=== PATIENT | female | born 1975 | race Caucasian/White ===

== ENCOUNTER 2016-10-01 01:15 | Observation (INO) | payer OTHER ==
[2016-10-01] MEDS ORDERED: NITROGLYCERIN OINT 1 INCH/GM PACKET TOPICAL STA (01:34)
[2016-10-01] MEDS ORDERED: NITROGLYCERIN SL TABS 0.4 MG TAB SUBLINGUAL STA (01:34)
[2016-10-01] MEDS ORDERED: LORazepam 2 MG/ML SYRINGE IV STA (01:35)
--- NOTE | 2016-10-01 01:38 | ED ---
General Adult HPI - General Chief complaint: Chest Pain Stated complaint: Chest Pain/Headache Time Seen by Provider: 10/01/16 01:20 Source: patient, RN notes reviewed Mode of arrival: ambulatory Limitations: no limitations - History of Present Illness Initial comments: This is a 41-year-old female who presents emergency Department with a past medical history significant for esophageal spasms. Patient states today at midnight he started having chest pain she took 3 nitroglycerin but has had no relief from the pain. Patient states she takes nitroglycerin for esophageal spasms. Patient states usually this helps her esophagus spasming but it did not help tonight. Patient states the radiation of the pain goes down her left arm and up into her head. Patient denies any shortness of breath. Patient denies any diaphoresis. Patient denies any nausea. Patient denies abdominal pain patient denies vomiting or diarrhea. Patient denies any recent fever chills or cough. Patient denies any back pain. - Related Data Home Medications Medication Instructions Recorded Confirmed Albuterol Inhaler [Ventolin Hfa 1 - 2 puff INHALATION RT-Q6H PRN 05/11/16 Inhaler] Naproxen Sodium [Aleve] 220 mg PO DAILY PRN 05/11/16 10/01/16 Nitroglycerin Sl Tabs [Nitrostat] 0.4 mg SUBLINGUAL Q5M PRN 05/11/16 10/01/16 Omeprazole [PriLOSEC] 40 mg PO BID 05/11/16 10/01/16 ALPRAZolam [Xanax] 0.25 mg PO Q8HR PRN 10/01/16 10/01/16 Allergies Allergy/AdvReac Type Severity Reaction Status Date / Time aspirin Allergy Anaphylaxis Verified 10/01/16 01:22 ibuprofen Allergy Anaphylaxis Verified 10/01/16 01:22 Latex, Natural Rubber Allergy Rash/Hives Verified 10/01/16 01:22 Penicillins Allergy Anaphylaxis Verified 10/01/16 01:22 Review of Systems ROS Statement: Those systems with pertinent positive or pertinent negative responses have been documented in the HPI. ROS Other: All systems not noted in ROS Statement are negative. Past Medical History Past Medical History: Asthma Additional Past Medical History / Comment(s): esophageal spasms History of Any Multi-Drug Resistant Organisms: None Reported Past Surgical History: Section Additional Past Surgical History / Comment(s): D&C Past Psychological History: Anxiety Smoking Status: Current every day smoker Past Alcohol Use History: None Reported Past Drug Use History: None Reported General Exam - General Exam Comments Initial Comments: GENERAL: Patient is well-developed and well-nourished. Patient is nontoxic and well- hydrated and is in mild distress. ENT: Neck is soft and supple. No significant lymphadenopathy is noted. Oropharynx is clear. Moist mucous membranes. Neck has full range of motion without eliciting any pain. EYES: The sclera were anicteric and conjunctiva were pink and moist. Extraocular movements were intact and pupils were equal round and reactive to light. Eyelids were unremarkable. PULMONARY: Unlabored respirations. Good breath sounds bilaterally. No audible rales rhonchi or wheezing was noted. CARDIOVASCULAR: There is a regular rate and rhythm without any murmurs gallops or rubs. ABDOMEN: Soft and nontender with normal bowel sounds. No palpable organomegaly was noted. There is no palpable pulsatile mass. SKIN: Skin is clear with no lesions or rashes and otherwise unremarkable. NEUROLOGIC: Patient is alert and oriented x3. Cranial nerves II through XII are grossly intact. Motor and sensory are also intact. Normal speech, volume and content. Symmetrical smile. MUSCULOSKELETAL: Normal extremities with adequate strength and full range of motion. No lower extremity swelling or edema. No calf tenderness. LYMPHATICS: No significant lymphadenopathy is noted PSYCHIATRIC: Normal psychiatric evaluation. Normal interpersonal interactions appears functionally intact in deals appropriately with others. Patient is anxious Limitations: no limitations Course Vital Signs 10/01/16 10/01/16 01:19 01:36 Temperature 98.1 F Pulse Rate 85 74 Respiratory 20 16 Rate Blood Pressure 135/77 113/77 O2 Sat by Pulse 100 100 Oximetry Medical Decision Making - Medical Decision Making EKG shows normal sinus rhythm at 70 bpm MS interval is 142 QRS is 88 QT interval 380 QTC is 433 per patient's EKG shows no ST segment elevation or depression. Chest x-ray shows no acute abnormality. Patient stated that the nitroglycerin along with the Ativan seemed to take away her pain completely. - Lab Data Result diagrams: 10/01/16 01:30 10/01/16 01:30 Lab Results 10/01/16 10/01/16 10/01/16 Range/Units 01:30 01:30 01:30 WBC 17.3 H (3.8-10.6) k/uL RBC 4.71 (3.80-5.40) m/uL Hgb 14.0 (11.4-16.0) gm/dL Hct 42.7 (34.0-46.0) % MCV 90.6 (80.0-100.0) fL MCH 29.7 (25.0-35.0) pg MCHC 32.8 (31.0-37.0) g/dL RDW 11.9 (11.5-15.5) % Plt Count 272 (150-450) k/uL Neutrophils % 72 % Lymphocytes % 21 % Monocytes % 3 % Eosinophils % 3 % Basophils % 1 % Neutrophils # 12.5 H (1.3-7.7) k/uL Lymphocytes # 3.6 (1.0-4.8) k/uL Monocytes # 0.5 (0-1.0) k/uL Eosinophils # 0.5 (0-0.7) k/uL Basophils # 0.1 (0-0.2) k/uL PT (9.0-12.0) sec INR (<1.1) APTT (22.0-30.0) sec Sodium 140 (137-145) mmol/L Potassium 3.6 (3.5-5.1) mmol/L Chloride 104 (98-107) mmol/L Carbon Dioxide 26 (22-30) mmol/L Anion Gap 10 mmol/L BUN 8 (7-17) mg/dL Creatinine 0.68 (0.52-1.04) mg/dL Est GFR (MDRD) Af Amer >60 (>60 ml/min/1.73 sqM) Est GFR (MDRD) Non-Af >60 (>60 ml/min/1.73 sqM) Glucose 107 H (74-99) mg/dL Calcium 9.3 (8.4-10.2) mg/dL Magnesium 1.6 (1.6-2.3) mg/dL Total Bilirubin 0.4 (0.2-1.3) mg/dL AST 12 L (14-36) U/L ALT 20 (9-52) U/L Alkaline Phosphatase 66 (38-126) U/L Total Creatine Kinase 56 (30-135) U/L CK-MB (CK-2) 0.3 (0.0-2.4) ng/mL CK-MB (CK-2) Rel Index 0.5 Troponin I <0.012 (0.000-0.034) ng/mL Total Protein 7.3 (6.3-8.2) g/dL Albumin 4.0 (3.5-5.0) g/dL 10/01/16 Range/Units 01:30 WBC (3.8-10.6) k/uL RBC (3.80-5.40) m/uL Hgb (11.4-16.0) gm/dL Hct (34.0-46.0) % MCV (80.0-100.0) fL MCH (25.0-35.0) pg MCHC (31.0-37.0) g/dL RDW (11.5-15.5) % Plt Count (150-450) k/uL Neutrophils % % Lymphocytes % % Monocytes % % Eosinophils % % Basophils % % Neutrophils # (1.3-7.7) k/uL Lymphocytes # (1.0-4.8) k/uL Monocytes # (0-1.0) k/uL Eosinophils # (0-0.7) k/uL Basophils # (0-0.2) k/uL PT 10.1 (9.0-12.0) sec INR 1.0 (<1.1) APTT 26.6 (22.0-30.0) sec Sodium (137-145) mmol/L Potassium (3.5-5.1) mmol/L Chloride (98-107) mmol/L Carbon Dioxide (22-30) mmol/L Anion Gap mmol/L BUN (7-17) mg/dL Creatinine (0.52-1.04) mg/dL Est GFR (MDRD) Af Amer (>60 ml/min/1.73 sqM) Est GFR (MDRD) Non-Af (>60 ml/min/1.73 sqM) Glucose (74-99) mg/dL Calcium (8.4-10.2) mg/dL Magnesium (1.6-2.3) mg/dL Total Bilirubin (0.2-1.3) mg/dL AST (14-36) U/L ALT (9-52) U/L Alkaline Phosphatase (38-126) U/L Total Creatine Kinase (30-135) U/L CK-MB (CK-2) (0.0-2.4) ng/mL CK-MB (CK-2) Rel Index Troponin I (0.000-0.034) ng/mL Total Protein (6.3-8.2) g/dL Albumin (3.5-5.0) g/dL Disposition Clinical Impression: Chest pain Disposition: ADMITTED IP TO THIS [facility] Time of Disposition: 02:45
[2016-10-01 01:44] LABS: Basophils # (A) 0.1 k/uL (0-0.2); Basophils % (A) 1 %; CH 30.1; CHCM 33.3; Eosinophils # (A) 0.5 k/uL (0-0.7); Eosinophils % (A) 3 %; HCT 42.7 % (34.0-46.0); HDW 2.36; Luc # (Auto) 0.19; Luc % (Auto) 1; Lymphocytes # (A) 3.6 k/uL (1.0-4.8); Lymphocytes % (A) 21 %; MCH 29.7 pg (25.0-35.0); MCHC 32.8 g/dL (31.0-37.0); MCV 90.6 fL (80.0-100.0); Mean Platelet Volume 6.4; Monocytes # (A) 0.5 k/uL (0-1.0); Monocytes % (A) 3 %; Neutrophils # (A) 12.5 k/uL (1.3-7.7); Neutrophils % (A) 72 %; RBC 4.71 m/uL (3.80-5.40); RDW 11.9 % (11.5-15.5); WBC 17.3 k/uL (3.8-10.6); WBC (Perox) 17.54
[2016-10-01] MEDS ORDERED: ACETAMINOPHEN TAB 500 MG TAB PO STA (01:47)
[2016-10-01 01:51] LABS: Partial Thromboplastin Time 26.6 sec (22.0-30.0); Prothrombin Time 10.1 sec (9.0-12.0)
[2016-10-01 01:55] LABS: ALT 20 U/L (9-52); AST 12 U/L (14-36); Alkaline Phosphatase 66 U/L (38-126); Anion Gap 10 mmol/L; Blood Urea Nitrogen 8 mg/dL (7-17); Calcium 9.3 mg/dL (8.4-10.2); Carbon Dioxide 26 mmol/L (22-30); Chloride 104 mmol/L (98-107); Glucose 107 mg/dL (74-99); Magnesium 1.6 mg/dL (1.6-2.3); Non-African American GFR(MDRD) >60 (>60 ml/min/1.73 sqM); Potassium 3.6 mmol/L (3.5-5.1); Sodium 140 mmol/L (137-145); Total Bilirubin 0.4 mg/dL (0.2-1.3); Total Protein 7.3 g/dL (6.3-8.2)
[2016-10-01 02:04] LABS: Creatine Kinase 56 U/L (30-135)
[2016-10-01 02:17] LABS: Creatine Kinase MB 0.3 ng/mL (0.0-2.4); Troponin I <0.012 ng/mL (0.000-0.034)
--- NOTE | 2016-10-01 02:25 | XR ---
EXAM: XR Chest, 2 Views. CLINICAL HISTORY: Reason: Chest Pain TECHNIQUE: Frontal and lateral views of the chest. COMPARISON: No relevant prior studies available. FINDINGS: Lungs: Linear opacities in bilateral lower lungs favoring atelectasis. Please correlate clinically to exclude pneumonia. Pleural space: Unremarkable. No pneumothorax. Heart: Unremarkable. No cardiomegaly. Mediastinum: Prominent bilateral jessica. Bones/joints: Mild degenerative changes of the spine. IMPRESSION: 1. Linear opacities in bilateral lower lungs favoring atelectasis. Please correlate clinically to exclude pneumonia. 2. Prominent bilateral jessica.
[2016-10-01] MEDS ORDERED: NITROGLYCERIN SL TABS 0.4 MG TAB SUBLINGUAL PRN (02:45)
[2016-10-01] MEDS ORDERED: ACETAMINOPHEN TAB 325 MG TAB PO PRN (03:06)
[2016-10-01 08:22] VITALS: RESP 16
--- NOTE | 2016-10-01 09:09 | P.CRDCN ---
History of Present Illness Consult date: 10/01/16 Chief complaint: chest pain History of present illness: This is a pleasant 41-year-old female patient with a past medical history significant for esophageal spasm as well as history of asthma presented to the hospital complaining of chest discomfort. Normally she has intermittent episodes of esophageal spasm resolved with nitroglycerin. This time she had an episode of chest discomfort similar to what she had in the past but they did not resolve with nitro and the patient decided to come into the hospital. Currently she is pain-free. 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 She does not have any hypertension or dyslipidemia or diabetes. She does smoke and she is currently on Chantix. The EKG showed sinus rhythm without any significant ST or T-wave abnormalities. She underwent one set of cardiac enzymes came in to be unremarkable and the second set is in process. The patient would like to be discharged home. I discussed with the patient that we need to wait for the second set of cardiac enzymes. If it's normal she might be able to be discharged home and have an outpatient follow-up. Past Medical History Past Medical History: Asthma Additional Past Medical History / Comment(s): esophageal spasms History of Any Multi-Drug Resistant Organisms: None Reported Past Surgical History: Section Additional Past Surgical History / Comment(s): D&C Past Anesthesia/Blood Transfusion Reactions: No Reported Reaction Past Psychological History: Anxiety Smoking Status: Current every day smoker Past Alcohol Use History: None Reported Past Drug Use History: None Reported - Past Family History Mother History Unknown: Yes Father History Unknown: Yes Medications and Allergies Home Medications Medication Instructions Recorded Confirmed Type Albuterol Inhaler [Ventolin Hfa 1 - 2 puff INHALATION RT-Q6H PRN 05/11/16 History Inhaler] Naproxen Sodium [Aleve] 220 mg PO DAILY PRN 05/11/16 10/01/16 History Nitroglycerin Sl Tabs [Nitrostat] 0.4 mg SUBLINGUAL Q5M PRN 05/11/16 10/01/16 History Omeprazole [PriLOSEC] 40 mg PO BID 05/11/16 10/01/16 History ALPRAZolam [Xanax] 0.25 mg PO Q8HR PRN 10/01/16 10/01/16 History Allergies Allergy/AdvReac Type Severity Reaction Status Date / Time aspirin Allergy Anaphylaxis Verified 10/01/16 01:22 ibuprofen Allergy Anaphylaxis Verified 10/01/16 01:22 Latex, Natural Rubber Allergy Rash/Hives Verified 10/01/16 01:22 Penicillins Allergy Anaphylaxis Verified 10/01/16 01:22 Physical Exam Vitals: Vital Signs Temp Pulse Pulse Resp BP Pulse Ox 10/01/16 08:00 98.5 F 16 105/65 98 10/01/16 04:00 98 F 81 18 101/58 96 10/01/16 03:33 16 10/01/16 02:59 82 16 100 Intake and Output 09/30/16 10/01/16 10/01/16 22:59 06:59 14:59 Other: Voiding Method Toilet # Voids 1 Weight 69.3 kg - Constitutional General appearance: no acute distress - Respiratory Respiratory: bilateral: CTA - Cardiovascular Rhythm: regular Heart sounds: normal: S1, S2 Abnormal Heart Sounds: systolic murmur Results 10/01/16 01:30 10/01/16 01:30 Current Medications Generic Name Dose Route Start Last Admin Trade Name Freq PRN Reason Stop Dose Admin Acetaminophen 650 mg 10/01/16 03:06 Tylenol Tab PO Q4HR PRN Fever and/ or Pain Nitroglycerin 1 inch 10/01/16 06:00 Nitro-Bid Oint TOPICAL Q6HR VANDANA Nitroglycerin 0.4 mg 10/01/16 02:45 Nitrostat SUBLINGUAL Q5M PRN Chest Pain Intake and Output 09/30/16 10/01/16 10/01/16 22:59 06:59 14:59 Other: Voiding Method Toilet # Voids 1 Weight 69.3 kg Assessment and Plan Plan: assessment #1 atypical chest discomfort #2 history of esophageal spasm #3 history of smoking Plan #1 follow-up with the serial cardiac enzymes #2 follow-up with the patient
[2016-10-01 09:22] LABS: Creatine Kinase 41 U/L (30-135)
[2016-10-01 09:35] LABS: Creatine Kinase MB <0.2 ng/mL (0.0-2.4); Troponin I <0.012 ng/mL (0.000-0.034)
[2016-10-01] MEDS: NITROGLYCERIN OINT 1 INCH/GM PACKET TOPICAL SCH ×2 (09:58→14:07)
[2016-10-01 12:37] VITALS: BP 158/93; TEMP 98.2
[2016-10-01 13:21] VITALS: PULSE 81
--- NOTE | 2016-10-01 19:02 | HP ---
DATE OF SERVICE: 10/01/2016 History and physical and discharge summary. CHIEF COMPLAINT: Chest pain. HISTORY OF PRESENT ILLNESS: Ms. Cool is a 41-year-old female with past medical history of esophageal spasm, asthma, coming into the hospital with a chief complaint of chest pain. Patient does have history of esophageal spasm and follows with Dr. Mauro and has been taking nitroglycerin for it. She thinks this time the chest pain was a little bit different to the ones that she had in the past and they did not resolve with nitroglycerin and so she came into the hospital for further evaluation. The patient was given aspirin, nitroglycerin in the ED and her symptoms did resolve. Patient did have troponins x2 that have been negative and EKG within normal limits. She does have a significant smoking history of 1 pack per day. She does not know about her biological family history. FAMILY HISTORY: She is chest pain free now and was evaluated by Cardiology, who said she was stable for discharge. PAST MEDICAL HISTORY: Asthma and esophageal spasms. ALLERGIES: ASPIRIN, IBUPROFEN, LATEX, NATURAL RUBBER AND PENICILLIN. Patient's home medications: Nitroglycerin 0.4 mg sublingual tablet q.5 minutes p.r.n. for esophageal spasms, albuterol inhaler p.r.n. for shortness of breath, omeprazole 40 mg p.o. b.i.d., naproxen 220 mg p.o. daily, Xanax 0.25 mg p.o. q.8 hours p.r.n. for anxiety. FAMILY HISTORY: She does not know biological family history. SOCIAL HISTORY: She is a current every day smoker. Smokes 1 pack a day. Occasional alcohol. PAST SURGICAL HISTORY: . On examination, patient's vital signs temperature 98.2, heart rate 94. Rate 16, blood pressure 158/93, saturating at 98% on room air. GENERAL EXAMINATION: Patient appears to be no acute distress, sitting in room eating her lunch. HEAD: Atraumatic, normocephalic. EYES: Pupils equal, round and reactive to light. NECK: No JVD. No thyromegaly. HEART: S1, S2. ( ) RESPIRATORY: Bilateral breath sounds are positive. No wheeze or crackles. ABDOMEN: Soft, nontender. Bowel sounds are positive. EXTREMITIES: No edema. No cyanosis. 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 No focal deficits. PSYCHIATRIC: Appropriate mood and affect. Patient's labs: Sodium 140, potassium 3.6, chloride 104, bicarb 26, BUN 8, creatinine 0.68. Troponin less than 0.012 x2. White count of 17.3, hemoglobin 14, platelets of 272, PT of 10.1, INR 1, APTT of 26.6, albumin 4. EKG within normal limits. ASSESSMENT AND PLAN: 1. Atypical chest pain. 2. History of esophageal spasms. 3. Nicotine dependence. 4. Mild intermittent asthma. PLAN: The patient had 2 sets of troponins and EKGs within normal limits and was evaluated by cardiology and cleared for discharge. Patient is advised to follow up with Manager Valuation, Dr. Mauro, for her esophageal spasms and she is being discharged home in stable condition. No change in her medications made during this visit. She is advised to follow with her PCP Dr. Yuniel Johnston within one week's time and GI, Dr. Mauro, in one week's time. Patient is being discharged home in stable condition. DIMPLE
== END 2016-10-01 14:00 | disposition home or self-care (01) ==
LOC: EC 01:15 → 3OBS 02:46
PROVIDERS: ADMIT Internal Medicine; ATTEND Internal Medicine
DX: R07.89 Other chest pain (principal); K22.4 Dyskinesia of esophagus; F17.200 Nicotine dependence, unspecified, uncomplicated; J45.20 Mild intermittent asthma, uncomplicated; Z79.899 Other long term (current) drug therapy; Z88.6 Allergy status to analgesic agent; Z88.0 Allergy status to penicillin; F41.9 Anxiety disorder, unspecified
CPT/HCPCS: 99285 ×2; 96374 ×2; 36415; 93005; 80053; 82550; 82553; 83735; 84484; 85025; 85610; 85730; 71020; G0378; J2060

== ENCOUNTER 2016-12-01 06:15 | Emergency (ER) | payer OTHER ==
[2016-12-01] MEDS ORDERED: CLINDAMYCIN 600 MG in DEXTROSE 5% IN WATER 50 ML IVPB STA ×2 (07:40)
[2016-12-01] MEDS ORDERED: DEXAMETHASONE SOD PHOSPHATE 10 MG/ML 1 ML VIAL IV STA (07:40)
[2016-12-01] MEDS ORDERED: RX INFO: IV CONTRAST WAS GIVEN 1 EACH MISC MISCELLANE PRN (07:41)
--- NOTE | 2016-12-01 07:43 | ED ---
General Adult HPI - General Chief complaint: ENT Stated complaint: Throat pain Time Seen by Provider: 12/01/16 07:24 Source: patient, RN notes reviewed Mode of arrival: ambulatory Limitations: no limitations - History of Present Illness Initial comments: Patient is a pleasant 41-year-old female presenting to the emergency department complaining of sore throat. Onset was yesterday. Throat is more sore on the left. No difficulty in breathing. Patient is tolerating her secretions. Patient is tolerating oral intake. No fever. Discomfort does increase with swallowing. - Related Data Home Medications Medication Instructions Recorded Confirmed Albuterol Inhaler [Ventolin Hfa 1 - 2 puff INHALATION RT-Q6H PRN 05/11/16 Inhaler] Naproxen Sodium [Aleve] 220 mg PO DAILY PRN 05/11/16 12/01/16 Nitroglycerin Sl Tabs [Nitrostat] 0.4 mg SUBLINGUAL Q5M PRN 05/11/16 12/01/16 Omeprazole [PriLOSEC] 40 mg PO BID 05/11/16 12/01/16 ALPRAZolam [Xanax] 0.25 mg PO Q8HR PRN 10/01/16 12/01/16 Previous Rx's Medication Instructions Recorded Clindamycin [Cleocin] 2 tab PO QID #80 capsule 12/01/16 Allergies Allergy/AdvReac Type Severity Reaction Status Date / Time aspirin Allergy Anaphylaxis Verified 12/01/16 07:58 ibuprofen Allergy Anaphylaxis Verified 12/01/16 07:58 Latex, Natural Rubber Allergy Rash/Hives Verified 12/01/16 07:58 Penicillins Allergy Anaphylaxis Verified 12/01/16 07:58 Review of Systems ROS Statement: Those systems with pertinent positive or pertinent negative responses have been documented in the HPI. ROS Other: All systems not noted in ROS Statement are negative. Constitutional: Denies: fever Eyes: Denies: eye pain ENT: Reports: throat pain Respiratory: Denies: cough Cardiovascular: Denies: chest pain Endocrine: Denies: fatigue Gastrointestinal: Denies: abdominal pain Genitourinary: Denies: dysuria Musculoskeletal: Denies: back pain Skin: Denies: rash Neurological: Denies: weakness Past Medical History Past Medical History: Asthma Additional Past Medical History / Comment(s): esophageal spasms History of Any Multi-Drug Resistant Organisms: None Reported Past Surgical History: Section Additional Past Surgical History / Comment(s): D&C Past Anesthesia/Blood Transfusion Reactions: No Reported Reaction Past Psychological History: Anxiety Smoking Status: Current every day smoker Past Alcohol Use History: None Reported Past Drug Use History: None Reported - Past Family History Mother History Unknown: Yes Father History Unknown: Yes General Exam Limitations: no limitations General appearance: alert, in no apparent distress Head exam: Present: atraumatic Eye exam: Present: normal appearance, PERRL ENT exam: Present: other (Pharyngeal erythema. There is minimal left-sided swelling greater than right side. No uvular deviation. No trismus. Patient is tolerating secretions.) Neck exam: Present: lymphadenopathy (Left sided tenderness). Absent: meningismus Respiratory exam: Present: normal lung sounds bilaterally Cardiovascular Exam: Present: regular rate, normal rhythm GI/Abdominal exam: Present: soft. Absent: tenderness Extremities exam: Present: normal inspection Neurological exam: Present: alert Psychiatric exam: Present: normal affect, normal mood Skin exam: Absent: rash Course Vital Signs 12/01/16 12/01/16 06:19 09:39 Temperature 97.8 F 98.0 F Pulse Rate 92 71 Respiratory 18 16 Rate Blood Pressure 114/65 102/58 O2 Sat by Pulse 99 99 Oximetry Medical Decision Making - Medical Decision Making Patient reevaluated and resting comfortably in bed. Patient updated on results including computed tomography scan. Patient is updated regarding possible transformation into a full abscess and need to return for this as well as signs to look for. - Lab Data Result diagrams: 12/01/16 08:21 12/01/16 08:21 Lab Results 12/01/16 12/01/16 12/01/16 Range/Units 07:58 08:21 08:21 WBC 21.2 H (3.8-10.6) k/uL RBC 4.46 (3.80-5.40) m/uL Hgb 13.7 (11.4-16.0) gm/dL Hct 40.8 (34.0-46.0) % MCV 91.6 (80.0-100.0) fL MCH 30.7 (25.0-35.0) pg MCHC 33.5 (31.0-37.0) g/dL RDW 12.4 (11.5-15.5) % Plt Count 223 (150-450) k/uL Neutrophils % 88 % Lymphocytes % 8 % Monocytes % 2 % Eosinophils % 2 % Basophils % 0 % Neutrophils # 18.6 H (1.3-7.7) k/uL Lymphocytes # 1.6 (1.0-4.8) k/uL Monocytes # 0.4 (0-1.0) k/uL Eosinophils # 0.4 (0-0.7) k/uL Basophils # 0.1 (0-0.2) k/uL PT (9.0-12.0) sec INR (<1.1) APTT (22.0-30.0) sec Sodium 139 (137-145) mmol/L Potassium 4.0 (3.5-5.1) mmol/L Chloride 109 H (98-107) mmol/L Carbon Dioxide 18 L (22-30) mmol/L Anion Gap 12 mmol/L BUN 9 (7-17) mg/dL Creatinine 0.53 (0.52-1.04) mg/dL Est GFR (MDRD) Af Amer >60 (>60 ml/min/1.73 sqM) Est GFR (MDRD) Non-Af >60 (>60 ml/min/1.73 sqM) Glucose 140 H (74-99) mg/dL Plasma Lactic Acid Chidi (0.7-2.0) mmol/L Calcium 8.8 (8.4-10.2) mg/dL Total Bilirubin 0.8 (0.2-1.3) mg/dL AST 13 L (14-36) U/L ALT 22 (9-52) U/L Alkaline Phosphatase 71 (38-126) U/L Total Protein 7.1 (6.3-8.2) g/dL Albumin 3.9 (3.5-5.0) g/dL Group A Strep Rapid Positive A (Negative) 12/01/16 12/01/16 Range/Units 08:21 08:21 WBC (3.8-10.6) k/uL RBC (3.80-5.40) m/uL Hgb (11.4-16.0) gm/dL Hct (34.0-46.0) % MCV (80.0-100.0) fL MCH (25.0-35.0) pg MCHC (31.0-37.0) g/dL RDW (11.5-15.5) % Plt Count (150-450) k/uL Neutrophils % % Lymphocytes % % Monocytes % % Eosinophils % % Basophils % % Neutrophils # (1.3-7.7) k/uL Lymphocytes # (1.0-4.8) k/uL Monocytes # (0-1.0) k/uL Eosinophils # (0-0.7) k/uL Basophils # (0-0.2) k/uL PT 10.7 (9.0-12.0) sec INR 1.1 (<1.1) APTT 28.0 (22.0-30.0) sec Sodium (137-145) mmol/L Potassium (3.5-5.1) mmol/L Chloride (98-107) mmol/L Carbon Dioxide (22-30) mmol/L Anion Gap mmol/L BUN (7-17) mg/dL Creatinine (0.52-1.04) mg/dL Est GFR (MDRD) Af Amer (>60 ml/min/1.73 sqM) Est GFR (MDRD) Non-Af (>60 ml/min/1.73 sqM) Glucose (74-99) mg/dL Plasma Lactic Acid Chidi 1.8 (0.7-2.0) mmol/L Calcium (8.4-10.2) mg/dL Total Bilirubin (0.2-1.3) mg/dL AST (14-36) U/L ALT (9-52) U/L Alkaline Phosphatase (38-126) U/L Total Protein (6.3-8.2) g/dL Albumin (3.5-5.0) g/dL Group A Strep Rapid (Negative) - Radiology Data Radiology results: report reviewed (Computed tomography scan of the soft tissue neck: Correlate for tonsillitis. Small locules of fluid without well formed abscess. Left cervical adenopathy.) Disposition Clinical Impression: Peritonsillar cellulitis Disposition: HOME SELF-CARE Condition: Stable Instructions: Strep Throat (ED), Peritonsillar Abscess (ED) Additional Instructions: Please follow-up with your primary care physician no later than Sunday. Also follow-up with ENT. If symptoms worsen you may need drainage in the near future. Return for difficulty breathing, not able to swallow, difficulty swallowing your own saliva, drooling, difficulty opening the mouth, worsening symptoms or other concerns. Prescriptions: Clindamycin [Cleocin] 2 tab PO QID #80 capsule Referrals: Yuniel Johnston MD [Primary Care Provider] - 1-2 days Feng Barros MD [STAFF PHYSICIAN] - 1-2 days
[2016-12-01] MEDS: SODIUM CHLORIDE 0.9% 500 ML IV SCH ×2 (08:20→09:30)
[2016-12-01 08:31] LABS: Basophils # (A) 0.1 k/uL (0-0.2); Basophils % (A) 0 %; CH 30.4; CHCM 33.3; Eosinophils # (A) 0.4 k/uL (0-0.7); Eosinophils % (A) 2 %; HCT 40.8 % (34.0-46.0); HDW 2.29; HGB 13.7 gm/dL (11.4-16.0); Luc # (Auto) 0.12; Luc % (Auto) 1; Lymphocytes # (A) 1.6 k/uL (1.0-4.8); Lymphocytes % (A) 8 %; MCH 30.7 pg (25.0-35.0); MCHC 33.5 g/dL (31.0-37.0); MCV 91.6 fL (80.0-100.0); Mean Platelet Volume 6.5; Monocytes # (A) 0.4 k/uL (0-1.0); Monocytes % (A) 2 %; Neutrophils # (A) 18.6 k/uL (1.3-7.7); Neutrophils % (A) 88 %; RBC 4.46 m/uL (3.80-5.40); RDW 12.4 % (11.5-15.5); WBC 21.2 k/uL (3.8-10.6); WBC (Perox) 23.07
[2016-12-01 08:39] LABS: INR 1.1 (<1.1); Prothrombin Time 10.7 sec (9.0-12.0)
[2016-12-01 08:43] LABS: ALT 22 U/L (9-52); AST 13 U/L (14-36); Alkaline Phosphatase 71 U/L (38-126); Anion Gap 12 mmol/L; Blood Urea Nitrogen 9 mg/dL (7-17); Calcium 8.8 mg/dL (8.4-10.2); Carbon Dioxide 18 mmol/L (22-30); Chloride 109 mmol/L (98-107); Glucose 140 mg/dL (74-99); Non-African American GFR(MDRD) >60 (>60 ml/min/1.73 sqM); Sodium 139 mmol/L (137-145); Total Bilirubin 0.8 mg/dL (0.2-1.3); Total Protein 7.1 g/dL (6.3-8.2)
--- NOTE | 2016-12-01 09:17 | CT ---
EXAMINATION TYPE: CT soft tissue neck w con DATE OF EXAM: 12/01/2016 8:52 AM COMPARISON: NONE HISTORY: 41-year-old female with left neck pain and swelling TECHNIQUE: Contiguous axial scanning of the soft tissues of the neck performed with IV Contrast, josie ent injected with 100 mL of Omnipaque 300. Coronal/sagittal reconstructions performed. CT DLP: 678 mGycm Automated exposure control for dose reduction was used. FINDINGS: Visualized paranasal sinuses and mastoid air cells are clear. Visualized intracranial structures and orbits and globes appear unremarkable. The nasopharynx appears clear. There is enlargement of the patient bilateral palatine tonsils and some heterogeneous enhancement in this region. Streak and beam hardening artifact from dental amalgam limits adequate assessment. No la rge well-formed fluid collection is identified. Small pockets of fluid are suggested in the left letitia ashish tonsils, for example, measuring 8 x 4 mm axial image 24 and sagittal image 49. Asymmetric enlargement of the left greater than right lingual tonsils. The glottic and subglottic airway, tracheal column are clear. There is moderate centrilobular emphyse ma in the visualized upper lungs. Mildly enlarged and borderline enlarged upper cervical lymph nodes, left greater than right measuring up to 1.8 cm on the left and 1.3 cm on the right, refer to sagittal image 58. Additional scattered prominent but nonenlarged lymph nodes are present on the left side of the neck. The epiglottis and prevertebral soft tissues are normal. Thyroid gland, submandibular glands, and parotid glands are satisfactory. IMPRESSION: 1. CORRELATE FOR TONSILLITIS, LEFT GREATER THAN RIGHT. THERE ARE SMALL LOCULES OF FLUID MEASURING UP TO 8 X 4 mm IN THE LEFT PALATINE TONSIL LIKELY REPRESENTING PHLEGMON. NO LARGE WELL-FORMED ABSCESS. 2. LEFT GREATER THAN RIGHT UPPER CERVICAL LYMPHADENOPATHY MEASURING UP TO 1.8 CM LIKELY REACTIVE. 3. COPD.
[2016-12-01] MEDS ORDERED: SODIUM CHLORIDE 0.9% 1,000 ML IV STA (09:23)
[2016-12-01 09:39] VITALS: BP 102/58; PULSE 71; RESP 16; TEMP 98
== END 2016-12-01 11:11 | disposition home or self-care (01) ==
LOC: EC 06:15
DX: J36 Peritonsillar abscess (principal); F17.200 Nicotine dependence, unspecified, uncomplicated; Z79.899 Other long term (current) drug therapy; Z88.0 Allergy status to penicillin; Z88.6 Allergy status to analgesic agent; Z91.040 Latex allergy status
CPT/HCPCS: 99283; 96365; 96375; 96361; 36415; 80053; 83605; 85025; 85610; 85730; 87040; 87430; 70491; J1100; Q9967

== ENCOUNTER 2018-07-20 14:39 | Emergency (ER) | payer OTHER ==
[2018-07-20 14:54] VITALS: BP 121/65; PULSE 89; RESP 18; TEMP 98
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
[2018-07-20] MEDS ORDERED: MORPHINE SULFATE 4 MG/ML SYRINGE IVP STA (15:23)
[2018-07-20] MEDS ORDERED: METHOCARBAMOL 750 MG TAB PO STA (15:23)
[2018-07-20 16:07] LABS: Appearance,Urine Clear (Clear); Basophils # (A) 0.1 k/uL (0-0.2); Basophils % (A) 0 %; Bilirubin,Urine Negative (Negative); Blood,Urine Negative (Negative); Color,Urine Light Yellow; Eosinophils # (A) 0.3 k/uL (0-0.7); Eosinophils % (A) 2 %; Glucose,Urine (UA) Negative (Negative); HCT 45.6 % (34.0-46.0); HGB 14.9 gm/dL (11.4-16.0); Ketones,Urine Negative (Negative); Leukocyte Esterase,Urine Negative (Negative); Lymphocytes # (A) 2.3 k/uL (1.0-4.8); Lymphocytes % (A) 15 %; MCH 30.1 pg (25.0-35.0); MCHC 32.8 g/dL (31.0-37.0); MCV 91.9 fL (80.0-100.0); Mean Platelet Volume 6.7; Monocytes # (A) 0.4 k/uL (0-1.0); Monocytes % (A) 3 %; Neutrophils # (A) 12.4 k/uL (1.3-7.7); Neutrophils % (A) 80 %; Nitrite,Urine Negative (Negative); Platelet Count 284 k/uL (150-450); Protein,Urine Negative (Negative); RBC 4.96 m/uL (3.80-5.40); RDW 12.6 % (11.5-15.5); Specific Gravity,Urine 1.006 (1.001-1.035); Urobilinogen,Urine <2.0 mg/dL (<2.0); WBC 15.5 k/uL (3.8-10.6)
[2018-07-20 16:18] LABS: INR 0.9 (<1.2); Partial Thromboplastin Time 26.3 sec (22.0-30.0); Prothrombin Time 9.8 sec (9.0-12.0)
[2018-07-20 16:27] LABS: ALT 25 U/L (9-52); AST 20 U/L (14-36); Albumin 4.3 g/dL (3.5-5.0); Alcohol <10 mg/dL; Alkaline Phosphatase 82 U/L (38-126); Anion Gap 6 mmol/L; Blood Urea Nitrogen 10 mg/dL (7-17); Calcium 9.5 mg/dL (8.4-10.2); Carbon Dioxide 26 mmol/L (22-30); Chloride 108 mmol/L (98-107); Glucose 103 mg/dL (74-99); Lipase 76 U/L (23-300); Sodium 140 mmol/L (137-145); Total Bilirubin 0.5 mg/dL (0.2-1.3); Total Protein 7.8 g/dL (6.3-8.2)
[2018-07-20] MEDS ORDERED: LIDOCAINE 5% PATCH TOPICAL STA (17:58)
--- NOTE | 2018-07-20 18:20 | XR ---
EXAMINATION TYPE: XR ribs RT w pa chest xray DATE OF EXAM: 07/20/2018 COMPARISON: NONE HISTORY: Rib pain TECHNIQUE: 5 views FINDINGS: Heart and mediastinum are normal. Lungs are clear. There is no sign of pleural effusion or pneumothorax. The right ribs appear intact. IMPRESSION: Normal chest. No rib fracture seen. Chest appears stable compared to 01/23/2013 exam.
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
== END 2018-07-20 19:04 | disposition home or self-care (01) ==
LOC: EC 14:39
DX: R07.81 Pleurodynia (principal); J45.909 Unspecified asthma, uncomplicated; F41.9 Anxiety disorder, unspecified; F17.200 Nicotine dependence, unspecified, uncomplicated; Z79.51 Long term (current) use of inhaled steroids; Z79.899 Other long term (current) drug therapy; Z88.0 Allergy status to penicillin; Z91.040 Latex allergy status; Z91.048 Other nonmedicinal substance allergy status; Z88.6 Allergy status to analgesic agent; V43.52XA Car driver injured in collision with other type car in traffic accident, initial encounter; W22.11XA Striking against or struck by driver side automobile airbag, initial encounter; Y92.410 Unspecified street and highway as the place of occurrence of the external cause
CPT/HCPCS: 36415; 80053; 83690; 85025; 85610; 85730; 81003; 81025; 80320; 71101; 71260; 74177; 99285; 96374; J2270; Q9967

== ENCOUNTER → 2019-01-06 | Outpatient (CLI) | payer BC, OTHER ==
--- NOTE | 2019-01-07 13:19 | MM ---
Reason for exam: screening (asymptomatic). Last mammogram was performed 7 years and 4 months ago. Physical Findings: A clinical breast exam by your physician is recommended on an annual basis and results should be correlated with mammographic findings. MG 3D Screening Mammo W/Cad Bilateral CC and MLO view(s) were taken. Prior study comparison: September 21, 2011, bilateral digital screening mammo w/CAD. The breast tissue is heterogeneously dense. This may lower the sensitivity of mammography. No suspicious abnormality. No significant changes when compared with prior studies. ASSESSMENT: Negative, BI-RAD 1 RECOMMENDATION: Routine screening mammogram of both breasts in 1 year. Manage on a clinical basis with regard to chronic nipple discharge. If clear or bloody, surgical consultation and diagnostic exam are recommended.
== END | disposition home or self-care (01) ==
LOC: RADMAMWWP 16:59
PROVIDERS: ATTEND Family Medicine
DX: Z12.31 Encounter for screening mammogram for malignant neoplasm of breast (principal)
CPT/HCPCS: 77063; 77067

== ENCOUNTER → 2019-04-16 | Outpatient (CLI) | payer BC, OTHER ==
--- NOTE | 2019-04-16 15:50 | XR ---
EXAMINATION TYPE: XR lumbar spine 2 or 3V, XR sacrum coccyx DATE OF EXAM: 04/16/2019 CLINICAL HISTORY: pain TECHNIQUE: Three views of the lumbar spine are submitted. COMPARISON: None. FINDINGS: There are 5 lumbar type vertebral bodies identified. The lumbar spine shows satisfactory alignment w ithout evidence of acute fracture or dislocation. Vertebral body heights are within normal limits. Moderate degenerative changes L2-3 and L3-4 The overlying soft tissue appears unremarkable. IMPRESSION: No acute fracture or dislocation is seen in the lumbar spine. ICD 10 NO FRACTURE, INITIAL EVALUATION with ventral spondylosis. EXAMINATION TYPE: XR lumbar spine 2 or 3V, XR sacrum coccyx DATE OF EXAM: 04/16/2019 CLINICAL HISTORY: pain TECHNIQUE: Three views of the sacrum and coccyx are submitted. COMPARISON: None Sacral alae appear symmetric. No evidence for fracture or bony lesion. Sacroiliac joints are within normal limits. Visualized coccygeal segments are free of fracture or lesion. IMPRESSION: Normal study
== END | disposition home or self-care (01) ==
LOC: RADXRMAIN 15:18
PROVIDERS: ATTEND Family Medicine
DX: M54.17 Radiculopathy, lumbosacral region (principal)
CPT/HCPCS: 72100; 72220

== ENCOUNTER → 2019-08-20 | Outpatient (CLI) | payer OTHER ==
--- NOTE | 2019-08-20 16:33 | CT ---
EXAMINATION TYPE: CT brain wo con DATE OF EXAM: 08/20/2019 COMPARISON: None HISTORY: Migraine x2 months. CT DLP: 1090.[address] of the brain was performed. The ventricles, basal cisterns and sulci overlying the cerebral convexities demonstrate a normal appe arance. There is no evidence for intracranial hemorrhage or sulcal effacement. No mass effects are seen. Osseous calvarium is intact. If symptoms persist consider MRI as clinically warranted. IMPRESSION: 1. No acute intracranial process is seen at this time.
== END | disposition home or self-care (01) ==
LOC: RADCTMAIN 16:14
PROVIDERS: ATTEND Nurse Practitioner Adult Health
DX: G43.909 Migraine, unspecified, not intractable, without status migrainosus (principal)
CPT/HCPCS: 70450

== ENCOUNTER → 2020-01-22 | Outpatient (CLI) | payer OTHER ==
--- NOTE | 2020-01-23 10:09 | MM ---
Reason for exam: screening (asymptomatic). Last mammogram was performed 1 year ago. Physical Findings: A clinical breast exam by your physician is recommended on an annual basis and results should be correlated with mammographic findings. MG 3D Screening Mammo W/Cad Bilateral CC and MLO view(s) were taken. Prior study comparison: January 06, 2019, bilateral MG 3d screening mammo w/cad. September 21, 2011, bilateral digital screening mammo w/CAD. The breast tissue is heterogeneously dense. This may lower the sensitivity of mammography. Finding: There is a 7 mm equal density (isodense) mass in the posterior, central position of the left breast. ASSESSMENT: Incomplete: need additional imaging evaluation, BI-RAD 0 RECOMMENDATION: Special view mammogram of the left breast. If lesion persists on supplemental views, image directed ultrasound is recommended. [facility] will attempt to contact patient to return for supplemental views and ultrasound if indicated.
== END | disposition home or self-care (01) ==
LOC: RADMAMWWP 16:04
PROVIDERS: ATTEND Family Medicine
DX: Z12.31 Encounter for screening mammogram for malignant neoplasm of breast (principal)
CPT/HCPCS: 77063; 77067

== ENCOUNTER → 2020-02-04 | Outpatient (CLI) | payer OTHER ==
--- NOTE | 2020-02-05 09:39 | MM ---
Reason for exam: additional evaluation requested from abnormal screening. Last mammogram was performed less than 1 month ago. History: Family history of breast cancer in paternal aunt. Physical Findings: Nurse did not find any significant physical abnormalities on exam. MG 3D Work Up W/Cad LT CC and MLO view(s) were taken of the left breast. Prior study comparison: January 22, 2020, bilateral MG 3d screening mammo w/cad. January 06, 2019, bilateral MG 3d screening mammo w/cad. The breast tissue is heterogeneously dense. This may lower the sensitivity of mammography. Asymmetric breast tissue left breast, stable. No distinct new lesion on additional views. These results were verbally communicated with the patient and result sheet given to the patient on 02/04/20. ASSESSMENT: Negative, BI-RAD 1 RECOMMENDATION: Return to routine screening mammogram schedule for both breasts.
== END | disposition home or self-care (01) ==
LOC: RADMAMWWP 14:55
PROVIDERS: ATTEND Family Medicine
DX: R92.8 Other abnormal and inconclusive findings on diagnostic imaging of breast (principal)
CPT/HCPCS: 77061; 77065

== ENCOUNTER 2020-02-15 22:14 | Emergency (ER) | payer OTHER ==
[2020-02-15] MEDS ORDERED: SODIUM CHLORIDE 0.9% 1,000 ML IV STA (22:49)
[2020-02-15] MEDS ORDERED: MECLIZINE 12.5 MG TAB PO STA (22:49)
[2020-02-15 23:03] LABS: Basophils # (A) 0.1 k/uL (0-0.2); Basophils % (A) 1 %; Eosinophils # (A) 0.4 k/uL (0-0.7); Eosinophils % (A) 3 %; HCT 41.4 % (34.0-46.0); HGB 13.4 gm/dL (11.4-16.0); Lymphocytes # (A) 3.2 k/uL (1.0-4.8); Lymphocytes % (A) 25 %; MCHC 32.5 g/dL (31.0-37.0); MCV 89.2 fL (80.0-100.0); Mean Platelet Volume 7.1; Monocytes # (A) 0.5 k/uL (0-1.0); Monocytes % (A) 4 %; Neutrophils # (A) 8.8 k/uL (1.3-7.7); Neutrophils % (A) 67 %; Platelet Count 317 k/uL (150-450); RBC 4.64 m/uL (3.80-5.40); RDW 12.7 % (11.5-15.5); WBC 13.1 k/uL (3.8-10.6)
[2020-02-15 23:05] LABS: Appearance,Urine Clear (Clear); Bilirubin,Urine Negative (Negative); Blood,Urine Negative (Negative); Color,Urine Light Yellow; Glucose,Urine (UA) Negative (Negative); Ketones,Urine Negative (Negative); Leukocyte Esterase,Urine Negative (Negative); Nitrite,Urine Negative (Negative); Protein,Urine Negative (Negative); Urobilinogen,Urine <2.0 mg/dL (<2.0)
[2020-02-15 23:10] LABS: ALT 14 U/L (4-34); AST 17 U/L (14-36); African American GFR (CKD) >90 (>60 ml/min/1.73 sqM); Albumin 4.2 g/dL (3.5-5.0); Alkaline Phosphatase 97 U/L (38-126); Anion Gap 10 mmol/L; Blood Urea Nitrogen 11 mg/dL (7-17); Calcium 9.4 mg/dL (8.4-10.2); Carbon Dioxide 18 mmol/L (22-30); Chloride 109 mmol/L (98-107); Glucose 113 mg/dL (74-99); Non-African American GFR(CKD) >90 (>60 ml/min/1.73 sqM); Potassium 3.5 mmol/L (3.5-5.1); Sodium 137 mmol/L (137-145); Total Bilirubin 0.2 mg/dL (0.2-1.3); Total Protein 7.3 g/dL (6.3-8.2)
[2020-02-15 23:17] LABS: Amphetamine Screen,Urine Not Detected (NotDetected); Benzodiazepines Screen,Urine Not Detected (NotDetected); Cocaine Screen,Urine Not Detected (NotDetected); Opiate Screen,Urine Not Detected (NotDetected); Phencyclidine Screen,Urine Not Detected (NotDetected); Tricyclic Antidepressant,Urine Detected (NotDetected); Urn Cannabinoid Scrn Not Detected (NotDetected)
[2020-02-15 23:18] LABS: Barbiturate Screen,Urine Not Detected (NotDetected); Methadone Screen, Urine Not Detected (NotDetected); Oxycodone Screen, Urine Not Detected (NotDetected)
--- NOTE | 2020-02-15 23:18 | ED ---
General Adult HPI - General Chief complaint: Dizziness Stated complaint: Dizziness Time Seen by Provider: 02/15/20 22:35 Source: patient, RN notes reviewed Mode of arrival: wheelchair Limitations: no limitations - History of Present Illness Initial comments: 44-year-old female with a past medical history of asthma, esophageal spasms, migraines presents to the emergency department for several complaints. Patient states she has felt dehydrated over the past few days. States she feels very thirsty and that her mouth is very dry despite drinking a lot of water. Patient states she has also felt somewhat dizzy. States sometimes the room spins around her. Patient denies any difficulty walking. Patient states she also feels that her food is not digesting well. She is burping often. Denies diarrhea. Denies chest pain or shortness of breath. Patient feels more fatigued than normal. States she "just feels exhausted." Patient denies any covid exposures.Patient has no other complaints at this time including shortness of breath, chest pain, abdominal pain, nausea or vomiting, headache, or visual changes. - Related Data Home Medications Medication Instructions Recorded Confirmed Albuterol Inhaler (Mhu) [Ventolin 1 - 2 puff INHALATION RT-Q6H PRN 05/11/16 07/20/18 Hfa Inhaler (Mhu)] Nitroglycerin Sl Tabs [Nitrostat] 0.4 mg SUBLINGUAL Q5M PRN 05/11/16 07/20/18 ALPRAZolam [Xanax] 0.25 mg PO Q8HR PRN 10/01/16 07/20/18 Amitriptyline HCl [Elavil] 25 mg PO HS 07/20/18 07/20/18 Budesonide/Formoterol Fumarate 2 puff INHALATION RT-BID 07/20/18 07/20/18 [Symbicort 160-4.5 Mcg Inhaler] Citalopram Hydrobromide [CeleXA] 40 mg PO HS 07/20/18 07/20/18 Hyoscyamine Sulfate [Levsin] 0.125 mg PO HS 07/20/18 07/20/18 Previous Rx's Medication Instructions Recorded Hydrocodone/Acetaminophen [[place] 1 tab PO Q6HR PRN #12 tab 07/20/18 7.5-325] Lidocaine 5% Patch [Lidoderm] 1 patch TOPICAL DAILY #10 patch 07/20/18 Methocarbamol [Robaxin-750] 750 mg PO TID PRN #21 tablet 07/20/18 Meclizine [Antivert] 25 mg PO TID #20 tab 02/16/20 Allergies Allergy/AdvReac Type Severity Reaction Status Date / Time aspirin Allergy Anaphylaxis Verified 02/15/20 22:19 ibuprofen Allergy Anaphylaxis Verified 02/15/20 22:19 Latex, Natural Rubber Allergy Rash/Hives Verified 02/15/20 22:19 Penicillins Allergy Anaphylaxis Verified 02/15/20 22:19 Review of Systems ROS Statement: Those systems with pertinent positive or pertinent negative responses have been documented in the HPI. ROS Other: All systems not noted in ROS Statement are negative. Past Medical History Past Medical History: Asthma Additional Past Medical History / Comment(s): esophageal spasms, migraines History of Any Multi-Drug Resistant Organisms: None Reported Past Surgical History: Section Additional Past Surgical History / Comment(s): D&C Past Anesthesia/Blood Transfusion Reactions: No Reported Reaction Past Psychological History: Anxiety Smoking Status: Current every day smoker Past Alcohol Use History: None Reported Past Drug Use History: None Reported - Past Family History Mother History Unknown: Yes Father History Unknown: Yes General Exam Limitations: no limitations General appearance: alert, in no apparent distress Head exam: Present: atraumatic, normocephalic, normal inspection Eye exam: Present: normal appearance, PERRL, EOMI. Absent: scleral icterus, conjunctival injection, periorbital swelling ENT exam: Present: normal exam, mucous membranes moist Neck exam: Present: normal inspection, full ROM. Absent: tenderness, meningismus, lymphadenopathy Respiratory exam: Present: normal lung sounds bilaterally. Absent: respiratory distress, wheezes, rales, rhonchi, stridor Cardiovascular Exam: Present: regular rate, normal rhythm, normal heart sounds. Absent: systolic murmur, diastolic murmur, rubs, gallop, clicks GI/Abdominal exam: Present: soft, normal bowel sounds. Absent: distended, tenderness, guarding, rebound, rigid Neurological exam: Present: alert, oriented X3, normal gait (Normal gait, no ataxia), other (GCS 15) Expanded Patient oriented to: Present: person, place, time Speech: Present: fluid speech Cranial nerves: EOM's Intact: Normal, Nystagmus: Normal, Facial Sensation: Normal Cerebellar function: Finger to Nose: Normal Upper motor neuron: Pronator Drift: Normal Sensory exam: Upper Extremity Light Touch: Normal, Upper Extremity Pin Prick: Normal, Lower Extremity Light Touch: Normal, Lower Extremity Pin Prick: Normal Motor strength exam: RUE: 5, LUE: 5, RLE: 5, LLE: 5 Eye Response: (4) open spontaneously Motor Response: (6) obeys commands Verbal Response: (5) oriented Ruffin Total: 15 Psychiatric exam: Present: normal affect, normal mood Course Vital Signs 02/15/20 02/15/20 22:16 23:19 Temperature 98.8 F 98.4 F Pulse Rate 98 79 Respiratory 20 20 Rate Blood Pressure 128/90 115/79 O2 Sat by Pulse 99 99 Oximetry EKG Findings - EKG Comments: EKG Findings:: Normal sinus rhythm, ventricular rate 85, MA interval 146, QTC 447 Medical Decision Making - Medical Decision Making CT head is negative. Vitals are stable. CBC is unremarkable. There is mild cytosis which is likely reactive. CMP unremarkable. Glucose 113. He shows a normal sinus rhythm without evidence of ischemic changes. Troponin is negative. Chest x-ray was normal. CT brain is normal. Patient reevaluated after 1 dose of Antivert and i s denying any dizziness. Walking to bathroom without difficulty or ataxia. She was given fluids. Patient is feeling better at this time. Patient will be discharged home. She will follow up with her doctor in one to 2 days. Carona virus pending. - Lab Data Result diagrams: 02/15/20 22:51 02/15/20 22:51 Lab Results 02/15/20 02/15/20 02/15/20 Range/Units 22:51 22:51 22:51 WBC 13.1 H (3.8-10.6) k/uL RBC 4.64 (3.80-5.40) m/uL Hgb 13.4 (11.4-16.0) gm/dL Hct 41.4 (34.0-46.0) % MCV 89.2 (80.0-100.0) fL MCH 29.0 (25.0-35.0) pg MCHC 32.5 (31.0-37.0) g/dL RDW 12.7 (11.5-15.5) % Plt Count 317 (150-450) k/uL Neutrophils % 67 % Lymphocytes % 25 % Monocytes % 4 % Eosinophils % 3 % Basophils % 1 % Neutrophils # 8.8 H (1.3-7.7) k/uL Lymphocytes # 3.2 (1.0-4.8) k/uL Monocytes # 0.5 (0-1.0) k/uL Eosinophils # 0.4 (0-0.7) k/uL Basophils # 0.1 (0-0.2) k/uL Sodium 137 (137-145) mmol/L Potassium 3.5 (3.5-5.1) mmol/L Chloride 109 H (98-107) mmol/L Carbon Dioxide 18 L (22-30) mmol/L Anion Gap 10 mmol/L BUN 11 (7-17) mg/dL Creatinine 0.61 (0.52-1.04) mg/dL Est GFR (CKD-EPI)AfAm >90 (>60 ml/min/1.73 sqM) Est GFR (CKD-EPI)NonAf >90 (>60 ml/min/1.73 sqM) Glucose 113 H (74-99) mg/dL Calcium 9.4 (8.4-10.2) mg/dL Total Bilirubin 0.2 (0.2-1.3) mg/dL AST 17 (14-36) U/L ALT 14 (4-34) U/L Alkaline Phosphatase 97 (38-126) U/L Troponin I (0.000-0.034) ng/mL Total Protein 7.3 (6.3-8.2) g/dL Albumin 4.2 (3.5-5.0) g/dL Urine Color Light Yellow Urine Appearance Clear (Clear) Urine pH 5.0 (5.0-8.0) Ur Specific [place] 1.010 (1.001-1.035) Urine Protein Negative (Negative) Urine Glucose (UA) Negative (Negative) Urine Ketones Negative (Negative) Urine Blood Negative (Negative) Urine Nitrite Negative (Negative) Urine Bilirubin Negative (Negative) Urine Urobilinogen <2.0 (<2.0) mg/dL Ur Leukocyte Esterase Negative (Negative) Urine HCG, Qual (Not Detectd) Urine Opiates Screen Not Detected (NotDetected) Ur Oxycodone Screen Not Detected (NotDetected) Urine Methadone Screen Not Detected (NotDetected) Ur Propoxyphene Screen Not Detected (NotDetected) Ur Barbiturates Screen Not Detected (NotDetected) U Tricyclic Antidepress Detected H (NotDetected) Ur Phencyclidine Scrn Not Detected (NotDetected) Ur Amphetamines Screen Not Detected (NotDetected) U Methamphetamines Scrn Not Detected (NotDetected) U Benzodiazepines Scrn Not Detected (NotDetected) Urine Cocaine Screen Not Detected (NotDetected) U Marijuana (THC) Screen Not Detected (NotDetected) 02/15/20 02/15/20 Range/Units 22:51 22:51 WBC (3.8-10.6) k/uL RBC (3.80-5.40) m/uL Hgb (11.4-16.0) gm/dL Hct (34.0-46.0) % MCV (80.0-100.0) fL MCH (25.0-35.0) pg MCHC (31.0-37.0) g/dL RDW (11.5-15.5) % Plt Count (150-450) k/uL Neutrophils % % Lymphocytes % % Monocytes % % Eosinophils % % Basophils % % Neutrophils # (1.3-7.7) k/uL Lymphocytes # (1.0-4.8) k/uL Monocytes # (0-1.0) k/uL Eosinophils # (0-0.7) k/uL Basophils # (0-0.2) k/uL Sodium (137-145) mmol/L Potassium (3.5-5.1) mmol/L Chloride (98-107) mmol/L Carbon Dioxide (22-30) mmol/L Anion Gap mmol/L BUN (7-17) mg/dL Creatinine (0.52-1.04) mg/dL Est GFR (CKD-EPI)AfAm (>60 ml/min/1.73 sqM) Est GFR (CKD-EPI)NonAf (>60 ml/min/1.73 sqM) Glucose (74-99) mg/dL Calcium (8.4-10.2) mg/dL Total Bilirubin (0.2-1.3) mg/dL AST (14-36) U/L ALT (4-34) U/L Alkaline Phosphatase (38-126) U/L Troponin I <0.012 (0.000-0.034) ng/mL Total Protein (6.3-8.2) g/dL Albumin (3.5-5.0) g/dL Urine Color Urine Appearance (Clear) Urine pH (5.0-8.0) Ur Specific [place] (1.001-1.035) Urine Protein (Negative) Urine Glucose (UA) (Negative) Urine Ketones (Negative) Urine Blood (Negative) Urine Nitrite (Negative) Urine Bilirubin (Negative) Urine Urobilinogen (<2.0) mg/dL Ur Leukocyte Esterase (Negative) Urine HCG, Qual Not Detected (Not Detectd) Urine Opiates Screen (NotDetected) Ur Oxycodone Screen (NotDetected) Urine Methadone Screen (NotDetected) Ur Propoxyphene Screen (NotDetected) Ur Barbiturates Screen (NotDetected) U Tricyclic Antidepress (NotDetected) Ur Phencyclidine Scrn (NotDetected) Ur Amphetamines Screen (NotDetected) U Methamphetamines Scrn (NotDetected) U Benzodiazepines Scrn (NotDetected) Urine Cocaine Screen (NotDetected) U Marijuana (THC) Screen (NotDetected) Disposition Clinical Impression: Dizzy Disposition: HOME SELF-CARE Condition: Good Instructions (If sedation given, give patient instructions): Dizziness (ED) Additional Instructions: Please take Antivert as directed. Follow-up with your doctor in one to 2 days. Return to the emergency room for any worsening symptoms Prescriptions: Meclizine [Antivert] 25 mg PO TID #20 tab Is patient prescribed a controlled substance at d/c from ED?: No Referrals: Yuniel Johnston MD [Primary Care Provider] - 1-2 days Time of Disposition: 00:39
[2020-02-15 23:39] VITALS: TEMP 98.4
--- NOTE | 2020-02-15 23:49 | XR ---
EXAMINATION TYPE: XR chest 2V DATE OF EXAM: 02/15/2020 COMPARISON: 10/01/2016 HISTORY: Dizziness TECHNIQUE: FINDINGS: Heart and mediastinum are normal. Lungs are clear. Diaphragm is normal. Bony thorax appears normal. IMPRESSION: Normal chest. No change.
--- NOTE | 2020-02-16 00:09 | CT ---
EXAMINATION TYPE: CT brain wo con DATE OF EXAM: 02/16/2020 COMPARISON: 08/20/2019 HISTORY: dizziness CT DLP: 1087.4 mGycm Automated exposure control for dose reduction was used. Exam performed with no contrast. Ventricles and sulci appear normal. There is no mass effect nor midline shift. There is no sign of in tracranial hemorrhage. Calvarium is intact. Skull base is intact. There is normal aeration of the mas toid sinuses. Impression Normal unenhanced head CT scan. No change.
[2020-02-16 00:53] VITALS: BP 129/79; PULSE 77; RESP 18
== END 2020-02-16 00:53 | disposition home or self-care (01) ==
LOC: EC 22:14
DX: Z03.818 Encounter for observation for suspected exposure to other biological agents ruled out (principal); R42 Dizziness and giddiness; R63.1 Polydipsia; R53.83 Other fatigue; J45.909 Unspecified asthma, uncomplicated; F41.9 Anxiety disorder, unspecified; F17.200 Nicotine dependence, unspecified, uncomplicated; Z79.51 Long term (current) use of inhaled steroids; Z79.899 Other long term (current) drug therapy; Z88.6 Allergy status to analgesic agent; Z91.040 Latex allergy status; Z88.0 Allergy status to penicillin
CPT/HCPCS: 99284 ×2; 96360 ×2; 36415; 93005; 80053; 84484; 85025; 81003; 81025; 80306; 71046; 70450; U0003

== ENCOUNTER 2020-04-21 22:34 | Emergency (ER) | payer OTHER ==
[2020-04-21] MEDS ORDERED: diphenhydrAMINE 50 MG/ML 1 ML VIAL IVP STA (22:53)
[2020-04-21] MEDS ORDERED: KETOROLAC 15 MG/ML 1 ML VIAL IVP STA (22:53)
[2020-04-21] MEDS ORDERED: METOCLOPRAMIDE 5 MG/ML 2 ML VIAL IVP STA (22:53)
[2020-04-21] MEDS ORDERED: SODIUM CHLORIDE 0.9% 500 ML 500 ML IV STA (22:53)
--- NOTE | 2020-04-21 22:59 | ED ---
Headache HPI - General Chief Complaint: Headache Stated Complaint: Migraine Time Seen by Provider: 04/21/20 22:40 Mode of arrival: ambulatory Limitations: no limitations - History of Present Illness Initial Comments: This patient is a 44-year-old woman with history of migraine headache, who presents with complaint that she is having a migraine that was not relieved by her home medicines. She states it had started with mild headache yesterday worse over the course of today. She states it is typical of her headaches. She has not had recent imaging, consisting of MRI performed in February that she was told was normal. MD Complaint: headache Onset/Timin -: days(s) Onset Description: gradual Location: temporal Severity: severe Quality: aching, throbbing Consistency: constant Improves With: nothing Worsens With: noise Associated Symptoms: nausea Treatments Prior to Arrival: other (Naproxen) - Related Data Home Medications Medication Instructions Recorded Confirmed Albuterol Inhaler (Mhu) [Ventolin 1 - 2 puff INHALATION RT-Q6H PRN 05/11/16 07/20/18 Hfa Inhaler (Mhu)] Nitroglycerin Sl Tabs [Nitrostat] 0.4 mg SUBLINGUAL Q5M PRN 05/11/16 07/20/18 ALPRAZolam [Xanax] 0.25 mg PO Q8HR PRN 10/01/16 07/20/18 Amitriptyline HCl [Elavil] 25 mg PO HS 07/20/18 07/20/18 Budesonide/Formoterol Fumarate 2 puff INHALATION RT-BID 07/20/18 07/20/18 [Symbicort 160-4.5 Mcg Inhaler] Citalopram Hydrobromide [CeleXA] 40 mg PO HS 07/20/18 07/20/18 Hyoscyamine Sulfate [Levsin] 0.125 mg PO HS 07/20/18 07/20/18 Previous Rx's Medication Instructions Recorded Hydrocodone/Acetaminophen [[place] 1 tab PO Q6HR PRN #12 tab 07/20/18 7.5-325] Lidocaine 5% Patch [Lidoderm] 1 patch TOPICAL DAILY #10 patch 07/20/18 Methocarbamol [Robaxin-750] 750 mg PO TID PRN #21 tablet 07/20/18 Meclizine [Antivert] 25 mg PO TID #20 tab 02/16/20 Allergies Allergy/AdvReac Type Severity Reaction Status Date / Time aspirin Allergy Anaphylaxis Verified 04/21/20 22:39 ibuprofen Allergy Anaphylaxis Verified 04/21/20 22:39 Latex, Natural Rubber Allergy Rash/Hives Verified 04/21/20 22:39 Penicillins Allergy Anaphylaxis Verified 04/21/20 22:39 Review of Systems ROS Statement: Those systems with pertinent positive or pertinent negative responses have been documented in the HPI. ROS Other: All systems not noted in ROS Statement are negative. Constitutional: Denies: fever, chills, weakness Eyes: Denies: vision change Respiratory: Denies: cough, dyspnea Cardiovascular: Denies: chest pain, palpitations, syncope Gastrointestinal: Reports: nausea. Denies: abdominal pain, vomiting, diarrhea Genitourinary: Denies: dysuria, hematuria Musculoskeletal: Denies: back pain Skin: Denies: rash Neurological: Reports: headache, vertigo. Denies: weakness, numbness, paresthesias, confusion Past Medical History Past Medical History: Asthma Additional Past Medical History / Comment(s): esophageal spasms, migraines History of Any Multi-Drug Resistant Organisms: None Reported Past Surgical History: Section Additional Past Surgical History / Comment(s): D&C Past Anesthesia/Blood Transfusion Reactions: No Reported Reaction Past Psychological History: Anxiety Smoking Status: Current every day smoker Past Alcohol Use History: None Reported Past Drug Use History: None Reported - Past Family History Mother History Unknown: Yes Father History Unknown: Yes General Exam Limitations: no limitations General appearance: alert, in no apparent distress Head exam: Present: atraumatic, normocephalic Eye exam: Present: normal appearance. Absent: scleral icterus, conjunctival injection ENT exam: Present: normal oropharynx Neck exam: Present: normal inspection, full ROM. Absent: meningismus Respiratory exam: Present: normal lung sounds bilaterally. Absent: respiratory distress, wheezes, rales, rhonchi, stridor Cardiovascular Exam: Present: regular rate, normal rhythm, normal heart sounds. Absent: systolic murmur, diastolic murmur, rubs, gallop GI/Abdominal exam: Present: soft. Absent: tenderness Extremities exam: Present: normal inspection Neurological exam: Present: alert, oriented X3, CN II-XII intact, normal gait. Absent: motor sensory deficit Skin exam: Present: warm, dry, intact, normal color. Absent: rash Course Vital Signs 04/21/20 22:37 Temperature 98.5 F Pulse Rate 98 Respiratory 20 Rate Blood Pressure 113/76 O2 Sat by Pulse 100 Oximetry Disposition Clinical Impression: Migraine headache Disposition: HOME SELF-CARE Condition: Good Instructions (If sedation given, give patient instructions): Acute Headache (ED) Is patient prescribed a controlled substance at d/c from ED?: No Referrals: Yuniel Johnston MD [Primary Care Provider] - 1-2 days
[2020-04-22 01:02] VITALS: BP 102/54; PULSE 89; RESP 18; TEMP 97.7
== END 2020-04-22 01:02 | disposition home or self-care (01) ==
LOC: EC 22:34
DX: G43.909 Migraine, unspecified, not intractable, without status migrainosus (principal); J45.909 Unspecified asthma, uncomplicated; F41.9 Anxiety disorder, unspecified; F17.200 Nicotine dependence, unspecified, uncomplicated; Z79.51 Long term (current) use of inhaled steroids; Z79.899 Other long term (current) drug therapy; Z88.6 Allergy status to analgesic agent; Z88.0 Allergy status to penicillin; Z91.040 Latex allergy status; Z91.048 Other nonmedicinal substance allergy status
CPT/HCPCS: 99283; 96374; 96375 ×2; 96361; J1200; J2765; J1885

== ENCOUNTER 2020-08-27 01:41 | Emergency (ER) | payer OTHER ==
[2020-08-27 01:47] VITALS: BP 121/79; PULSE 80; RESP 22; TEMP 97.7
[2020-08-27] MEDS ORDERED: MAG HYDROX/AL HYDROX/SIMETH 30 ML, HYOSCYAMINE ELIXIR 10 ML, LIDOCAINE VISCOUS 2% 10 ML PO STA ×3 (01:59)
[2020-08-27] MEDS ORDERED: HYDROmorphone 1 MG/ML 1 ML SYRINGE IM STA (01:59)
--- NOTE | 2020-08-27 02:02 | ED ---
General Adult HPI - General Chief complaint: ENT Stated complaint: Throat issue Time Seen by Provider: 08/27/20 01:48 Source: patient, family Mode of arrival: ambulatory Limitations: no limitations - History of Present Illness Initial comments: 45 year-old female patient presents to the emergency department for treatment of esophageal spasms. Patient states that she has history of esophageal spasms for years. 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 Patient states that she has been having spasms for the last 30 minutes to an hour. States she tried her home remedies without relief. States the pain worsens with lying down. She is reporting pain to the midepigastric region with radiation through to her back. States that her symptoms are consistent with her previous episodes and she has no new symptoms. She denies any shortness of breath, nausea, vomiting, or sweats. She does smoke cigarettes. States she takes atorvastatin. Denies any history of hypertension or diabetes. Patient denies any recent rash, fever, chills, cough, diarrhea, constipation, back pain, numbness, tingling, dizziness, weakness, hematuria, dysuria, urinary urgency, urinary frequency, headache, visual changes, or any other complaints. - Related Data Home Medications Medication Instructions Recorded Confirmed Albuterol Inhaler (Mhu) [Ventolin 1 - 2 puff INHALATION RT-Q6H PRN 05/11/16 07/20/18 Hfa Inhaler (Mhu)] Nitroglycerin Sl Tabs [Nitrostat] 0.4 mg SUBLINGUAL Q5M PRN 05/11/16 07/20/18 ALPRAZolam [Xanax] 0.25 mg PO Q8HR PRN 10/01/16 07/20/18 Amitriptyline HCl [Elavil] 25 mg PO HS 07/20/18 07/20/18 Budesonide/Formoterol Fumarate 2 puff INHALATION RT-BID 07/20/18 07/20/18 [Symbicort 160-4.5 Mcg Inhaler] Citalopram Hydrobromide [CeleXA] 40 mg PO HS 07/20/18 07/20/18 Hyoscyamine Sulfate [Levsin] 0.125 mg PO HS 07/20/18 07/20/18 Previous Rx's Medication Instructions Recorded Hydrocodone/Acetaminophen [[place] 1 tab PO Q6HR PRN #12 tab 07/20/18 7.5-325] Lidocaine 5% Patch [Lidoderm] 1 patch TOPICAL DAILY #10 patch 07/20/18 Methocarbamol [Robaxin-750] 750 mg PO TID PRN #21 tablet 07/20/18 Meclizine [Antivert] 25 mg PO TID #20 tab 02/16/20 Allergies Allergy/AdvReac Type Severity Reaction Status Date / Time aspirin Allergy Anaphylaxis Verified 08/27/20 01:47 ibuprofen Allergy Anaphylaxis Verified 08/27/20 01:47 Latex, Natural Rubber Allergy Rash/Hives Verified 08/27/20 01:47 Penicillins Allergy Anaphylaxis Verified 08/27/20 01:47 Review of Systems ROS Statement: Those systems with pertinent positive or pertinent negative responses have been documented in the HPI. ROS Other: All systems not noted in ROS Statement are negative. Past Medical History Past Medical History: Asthma Additional Past Medical History / Comment(s): esophageal spasms, migraines History of Any Multi-Drug Resistant Organisms: None Reported Past Surgical History: Section Additional Past Surgical History / Comment(s): D&C Past Anesthesia/Blood Transfusion Reactions: No Reported Reaction Past Psychological History: Anxiety, Depression Smoking Status: Current every day smoker Past Alcohol Use History: None Reported Past Drug Use History: None Reported - Past Family History Mother History Unknown: Yes Father History Unknown: Yes General Exam Limitations: no limitations General appearance: alert, in no apparent distress, other (this is a well- developed, well-nourished adult female patient in no acute distress. ) ENT exam: Present: normal exam, normal oropharynx, mucous membranes moist Respiratory exam: Present: normal lung sounds bilaterally. Absent: respiratory distress, wheezes, rales, rhonchi, stridor Cardiovascular Exam: Present: regular rate, normal rhythm, normal heart sounds. Absent: systolic murmur, diastolic murmur, rubs, gallop, clicks GI/Abdominal exam: Present: soft, tenderness (midepigastric tenderness), normal bowel sounds. Absent: distended, guarding, rebound, rigid Neurological exam: Present: alert, oriented X3, CN II-XII intact Psychiatric exam: Present: normal affect, normal mood Skin exam: Present: warm, dry, intact, normal color. Absent: rash Course Vital Signs 08/27/20 01:44 Temperature 97.7 F Pulse Rate 80 Respiratory 22 Rate Blood Pressure 121/79 O2 Sat by Pulse 100 Oximetry EKG Findings - EKG Comments: EKG Findings:: EKG obtained at oh to 18 shows normal sinus rhythm with a ventricular rate 74, CO interval 142, QRS duration 90, QT 424, QTC 470. No e vidence of ST elevation or depression. Medical Decision Making - Medical Decision Making 45-year-old female patient presents to the emergency department today for evaluation and treatment of esophageal spasms. Patient states that she has tried home remedies tonight without relief. States her symptoms are consistent with her usual episodes of esophageal spasm. He denies any new symptoms. Vital signs are within normal ranges. EKG was unremarkable. Chest x-ray was negative. She was given her usual cocktail of GI cocktail and Dilaudid. Upon reevaluation she states her symptoms are improved. She is drinking without difficulty. She'll be discharged to follow-up with her primary care physician and GI specialist as needed. Return parameters were discussed in detail. She verbalizes understanding and agrees with this plan. Case discussed with my attending Dr. Ybarra. - Radiology Data Radiology results: report reviewed, image reviewed 2 views of the chest are obtained. Report was reviewed in its entirety. Impression by Dr. Moreno shows no acute disease identified. Disposition Clinical Impression: Esophageal spasm Disposition: HOME SELF-CARE Condition: Good Instructions (If sedation given, give patient instructions): Esophageal Spasm (ED) Additional Instructions: Follow-up through primary care physician for recheck in 1-2 days. Return to the emergency department for any new, worsening, or concerning symptoms. Is patient prescribed a controlled substance at d/c from ED?: No Referrals: Yuniel Johnston MD [Primary Care Provider] - 1-2 days Time of Disposition: 02:57
--- NOTE | 2020-08-27 02:43 | XR ---
EXAM: XR Chest, 2 Views CLINICAL HISTORY: ITS.REASON XR Reason: Chest discomfort TECHNIQUE: Frontal and lateral views of the chest. COMPARISON: Chest radiograph on 02/15/2020 FINDINGS: Hardware: None. Lungs/pleura: Normal. No focal consolidation. No pleural effusion or pneumothorax. Heart/mediastinum: Normal. No cardiomegaly. Soft tissues: Unremarkable. Bones: No acute fracture. Upper abdomen: Normal. IMPRESSION: No acute disease identified.
== END 2020-08-27 03:05 | disposition home or self-care (01) ==
LOC: EC 01:41
DX: K22.4 Dyskinesia of esophagus (principal); F17.200 Nicotine dependence, unspecified, uncomplicated; F41.9 Anxiety disorder, unspecified; F32.9 Major depressive disorder, single episode, unspecified; J45.909 Unspecified asthma, uncomplicated; Z79.51 Long term (current) use of inhaled steroids; Z79.899 Other long term (current) drug therapy; Z88.0 Allergy status to penicillin; Z88.6 Allergy status to analgesic agent; Z91.040 Latex allergy status
CPT/HCPCS: 99283; 96372; 93005; 71046; J1170

== ENCOUNTER → 2021-01-04 | Outpatient (CLI) | payer OTHER ==
[2021-01-04 22:33] LABS: Basophils # (A) 0.06 X 10*3/uL (0.00-0.10); Basophils % (A) 0.6 %; Eosinophils % (A) 3.1 %; HCT 42.1 % (37.2-46.3); HGB 13.5 g/dL (12.0-15.0); Lymphocytes # (A) 2.93 X 10*3/uL (0.90-5.00); Lymphocytes % (A) 29.8 %; MCH 29.7 pg (27.0-32.0); MCHC 32.1 g/dL (32.0-37.0); MCV 92.7 fL (80.0-97.0); Mean Platelet Volume 9.9 fL (9.5-12.2); Monocytes % (A) 5.1 %; Neutrophils # (A) 6.02 X 10*3/uL (1.80-7.70); Neutrophils % (A) 61.2 %; Platelet Count 305 X 10*3/uL (140-440); RBC 4.54 X 10*6/uL (4.10-5.20); RDW 12.4 % (11.5-14.5); WBC 9.83 X 10*3/uL (4.50-10.00)
== END | disposition home or self-care (01) ==
LOC: LABWHC1 16:00
PROVIDERS: ATTEND Family Medicine
DX: R19.7 Diarrhea, unspecified (principal)
CPT/HCPCS: 36415; 85025

== ENCOUNTER → 2021-02-17 | Outpatient (CLI) | payer OTHER ==
--- NOTE | 2021-02-17 17:58 | CT ---
EXAMINATION TYPE: CT abdomen pelvis wo con DATE OF EXAM: 02/17/2021 COMPARISON: 07/20/2018 HISTORY: chronic diarrhea TECHNIQUE: CT scan of the abdomen and pelvis performed without contrast CT DLP: 924 mGycm Automated exposure control for dose reduction was used. FINDINGS: Lack of IV contrast limits evaluation of the CT. There is a 5 mm pleural-based left lower lobe nodule which was seen on prior CT and is stable in size . There is a left lower lobe nodule measuring 7.3 cm stable in size and appearance compared to prior. Subsegmental atelectatic changes are noted in the lung bases. Is normal in size. Liver, spleen, gallbladder, pancreas and adrenal glands unremarkable. No abnormal biliary ductal dila tation. Kidneys are normal in size and there is no hydronephrosis or evidence of nephrolithiasis. The urinary bladder is unremarkable. There is a small gastroesophageal hiatal hernia. The distal esophagus is distended. There is no evide nce of bowel obstruction. No diverticulosis or evidence of acute diverticulitis. The appendix is norm al in appearance. No pneumoperitoneum or ascites. Uterus is anteverted and normal in size. Small amount of fluid is seen in the endometrial cavity. Hyp oattenuating lesion is again seen in the uterine fundus could represent a leiomyoma. Hypoattenuating lesions seen in the left adnexa may represent a ovarian or adnexal cysts. There are 2 small surgical devices/clip the upper pelvis to the right of the uterine fundus and to the left of the urinary bladd er and are both stable in appearance and position. The aorta is nonaneurysmal. Scattered calcifications are seen in the wall of the aorta. No acute osseous abnormalities seen. Stable degenerative changes are seen in the spine most prominent at L5-S1 including ossified mildly herniated disc which has ossified and increased compared to prior . Mild facet joint arthropathy at L5-S1. No bony spinal canal stenosis. Lumbar spine MRI could be of additional benefit if clinically indicated. The soft tissues unremarkable. IMPRESSION: 1. NO EVIDENCE OF ACUTE INTRA-ABDOMINAL OR PELVIC ABNORMALITY. PLEASE NOTE THAT EVALUATION IS LIMITED DUE TO LACK OF IV CONTRAST. 2. STABLE NODULES IN THE LEFT LOWER LOBE MEASURING 7.3 MM AND 5 MM. 3. MODERATE DEGENERATIVE CHANGES IN THE LOWER LUMBAR SPINE, SLIGHTLY PROGRESSED COMPARED TO PRIOR. 4. NONACUTE FINDINGS DESCRIBED IN BODY OF REPORT.
== END | disposition home or self-care (01) ==
LOC: RADCTMAIN 16:55
PROVIDERS: ATTEND Family Medicine
DX: K52.9 Noninfective gastroenteritis and colitis, unspecified (principal)
CPT/HCPCS: 74176

== ENCOUNTER 2021-04-06 08:39 | Day surgery (SDC) | payer OTHER ==
[2021-04-01 15:20] VITALS: BMI 25.8
[~2021-04-06 08:39] MED LIST: LACTATED RINGERS 1,000 ML IV SCH
[2021-04-06 09:04] VITALS: TEMP 97.4
[2021-04-06] MEDS ORDERED: PROPOFOL 10 MG/ML 20 ML VIAL IV ONE (09:40)
[2021-04-06] MEDS ORDERED: LIDOCAINE 1% INJ 10MG/ML (20 ML MDV) ONE (09:40)
--- NOTE | 2021-04-06 10:28 | P.PCN ---
Date of Procedure: 04/06/21 Procedure(s) Performed: Brief history: Patient is a pleasant 45-year-old white female scheduled for an elective upper endoscopy as well as colonoscopy as a part of evaluation of, on standing history of GERD and chronic diarrhea for the last 3 months duration. She has not was anywhere from 3-4 a day which are usually postprandial in nature. No blood or mucus in the stool. Esophagogastroduodenoscopy with biopsy Colonoscopy with biopsy and snare polypectomy Preoperative diagnosis: GERD Chronic diarrhea of 3 months duration Anesthesia: MAC Procedure: After informed consent was obtained from the patient was brought into the endoscopy unit and IV sedation was administered by anesthesia under continuous monitoring. Initially upper endoscopy was done. The Olympus GF 160 video endoscope was inserted inserted into the mouth and esophagus intubated without any difficulty and was gradually advanced into the stomach and duodenum and carefully examined. The bulb and second part of the duodenum appeared normal. abscesses were done from the duodenum to rule out celiac disease. The scope was then withdrawn into the stomach adequately insufflated with air and upon careful examination the antrum and mild diffuse gastritis and biopsies were done from this area. The body, cardia and fundus appeared normal. The scope was then withdrawn into the esophagus. The GE junction was located at 40 cm to the incisors. SLIDING-type well hernia noted. There were 2 erosions in the distal esophagus consistent with LA grade B reflux esophagitis. Rest of the esophagus appeared normal. Patient tolerated the procedure well. At this time the patient continued to remain sedation. Initial digital rectal examination was normal. Olympus CF 160 video colonoscope was then inserted into the rectum and gradually advanced to the cecum without any difficulty. Careful examination was performed as the scope was gradually being withdrawn. The prep was excellent. The cecum, ascending colon, transverse colon, descending colon, sigmoid colon and rectum appeared normal. In the distal rectum just proximal to the dentate line there was a 1.5 cm flat polyp that was removed by snare polypectomy. Biopsies were done from ascending and descending colon to rule out microscopic/collagenous colitis. Retroflexion was performed in the rectum and no lesions were noted. Patient tolerated the procedure well. Impression: 1 Upper endoscopy revealed mild antral gastritis, small hiatal hernia and LA grade a reflux esophagitis 2. Colonoscopy revealed a 1.5 cm broad-based distal rectal polyp status post the dentate line status post polypectomy Recommendations: Findings of this examination were discussed with the patient as well as her family. She was advised to follow with the biopsy results. If the biopsy reveals adenoma she can have a repeat colonoscopy in 3-5 years. In the past of chronic diarrhea she was advised to use [id number] Imodium as needed and follow up in office she continues to have persistent symptoms
[2021-04-06 10:45] VITALS: BP 112/62; PULSE 79; RESP 16
== END 2021-04-06 10:50 | disposition home or self-care (01) ==
LOC: ORWHC2ENDO 08:39
PROVIDERS: ATTEND Internal Medicine Gastroenterology
DX: K29.50 Unspecified chronic gastritis without bleeding (principal); D72.820 Lymphocytosis (symptomatic); K21.00 Gastro-esophageal reflux disease with esophagitis, without bleeding; K44.9 Diaphragmatic hernia without obstruction or gangrene; D12.2 Benign neoplasm of ascending colon; K62.1 Rectal polyp; J45.909 Unspecified asthma, uncomplicated; F17.200 Nicotine dependence, unspecified, uncomplicated; F41.8 Other specified anxiety disorders; Z79.899 Other long term (current) drug therapy; Z88.0 Allergy status to penicillin
CPT/HCPCS: 45380; 45385; 43239; 88305; J2001; J2704

== ENCOUNTER → 2021-04-29 | Outpatient (CLI) | payer OTHER | END | disposition home or self-care (01) | LOC: LABWHC1 11:57 | PROVIDERS: ATTEND Internal Medicine Gastroenterology | DX: K52.9 Noninfective gastroenteritis and colitis, unspecified (principal) | CPT/HCPCS: 36415; 83516 ==

== ENCOUNTER → 2021-12-16 | Outpatient (CLI) | payer OTHER ==
--- NOTE | 2021-12-16 15:47 | MR ---
EXAMINATION TYPE: MR cervical spine wo con DATE OF EXAM: 12/16/2021 COMPARISON: None HISTORY: Neck pain, numbness in thu upper extremities TECHNIQUE: Multiplanar, multisequence images of the cervical spine were acquired without contrast. C2-C3: No evidence for degenerative disc disease. No disc bulge/herniation or protrusion. No Canal stenosis. Foramina are patent bilaterally. C3-C4: Posterior broad-based disc bulge causes minimal anterior mass effect on the thecal sac. Uncove rtebral joint hypertrophy encroaches minimally on The left neural foramen. C4-C5: Posterior extension endplate disc complex causes mild anterior mass effect on the thecal sac. Uncovertebral joint hypertrophy encroaches mildly into the bilateral foramina right greater than left . C5-C6: Right posterior paracentral extension of endplate disc complex is present, eccentric disc jodee iation causes anterolateral mass effect on the thecal sac towards the right, there is extension with uncovertebral joint hypertrophy resulting in right-sided foraminal encroachment due to the left. C6-C7: Left-sided foraminal encroachment is present due to uncovertebral joint hypertrophy, posterior broad-based disc bulge causes anterior mass effect on the thecal sac. C7-T1: No evidence for degenerative disc disease. No disc bulge/herniation or protrusion. No Canal stenosis. Foramina are patent bilaterally. Cervical segments are intact. There is normal alignment. Cervical spinal cord is of normal signal. Craniovertebral junction relationships are within normal limits. There is multilevel spondylosis. C ervical vertebral bodies show preserved height, alignment, there is endplate discogenic marrow signal change. Loss of disc height signal present C4-5, C5-6 and C6-7 consistent with disc desiccation and degenerative disc disease. There is no significant spinal stenosis. IMPRESSION: Multilevel degenerative disc disease, foraminal encroachment, there is lateral disc herniation at C5- 6 as described
== END | disposition home or self-care (01) ==
LOC: RADMRIMAIN 12:34
DX: M50.322 Other cervical disc degeneration at C5-C6 level (principal); M50.222 Other cervical disc displacement at C5-C6 level
CPT/HCPCS: 72141

== ENCOUNTER → 2022-10-31 | Outpatient (CLI) | payer OTHER ==
--- NOTE | 2022-11-01 11:10 | MM ---
Reason for Exam: Screening (asymptomatic). Last mammogram was performed 2 year(s) and 9 month(s) ago. Patient History: Menarche at age 12. First Full-Term at age 18. Paternal aunt had breast cancer. Risk Values: Bhavya 5 year model risk: 0.6%. NCI Lifetime model risk: 6.8%. Prior Study Comparison: 01/06/2019 Bilateral Screening Mammogram, [facility]. 01/22/2020 Bilateral Screening Mammogram, [facility]. 02/04/2020 Left Diagnostic Mammogram, [facility]. Tissue Density: The breast tissue is heterogeneously dense. This may lower the sensitivity of mammography. Findings: Analyzed By CAD. There is no suspicious group of microcalcifications or new suspicious mass in either breast. Overall Assessment: Negative, BI-RAD 1 Management: Screening Mammogram of both breasts in 1 year. A clinical breast exam by your physician is recommended on an annual basis and results should be correlated with mammographic findings. Electronically signed and approved by: Ever Sandy D.O.
== END | disposition home or self-care (01) ==
LOC: RADMAMWWP 07:43
PROVIDERS: ATTEND Family Medicine
DX: Z12.31 Encounter for screening mammogram for malignant neoplasm of breast (principal); Z80.3 Family history of malignant neoplasm of breast
CPT/HCPCS: 77063; 77067

== ENCOUNTER 2023-07-15 15:21 | Emergency (ER) | payer OTHER ==
[2023-07-15] MEDS ORDERED: ACETAMINOPHEN TAB 500 MG TAB PO STA (16:20)
--- NOTE | 2023-07-15 16:20 | ED ---
General Adult HPI - General Chief complaint: Upper Respiratory Infection Stated complaint: Cold symptoms,dizziness Time Seen by Provider: 07/15/23 15:41 Source: patient, RN notes reviewed Mode of arrival: ambulatory Limitations: no limitations - History of Present Illness Initial comments: 47-year-old female presents to the emergency department for evaluation of cough, congestion, headache, muscle aches. These symptoms started 2 days ago. She states that today she noticed a fever. She did not take any Tylenol or other antipyretic for this. She does admit to some vertigo-like symptoms. Past medical history includes COPD. - Related Data Home Medications Medication Instructions Recorded Confirmed Albuterol Inhaler [Ventolin Hfa 1 - 2 puff INHALATION RT-Q6H PRN 05/11/16 04/06/21 Inhaler] Nitroglycerin Sl Tabs [Nitrostat] 0.4 mg SUBLINGUAL Q5M PRN 05/11/16 04/06/21 ALPRAZolam [Xanax] 0.25 mg PO Q8HR PRN 10/01/16 04/06/21 Citalopram Hydrobromide [CeleXA] 40 mg PO HS 07/20/18 04/06/21 Hyoscyamine Sulfate [Levsin] 0.25 mg PO HS 07/20/18 04/06/21 Atorvastatin [Lipitor] 20 mg PO HS 04/01/21 04/06/21 Famotidine 40 mg PO HS 04/01/21 04/06/21 Fremanezumab-Vfrm [Ajovy Syringe] 225 mg INJ Q30D 04/01/21 04/06/21 Meloxicam 15 mg PO HS 04/01/21 04/06/21 Nortriptyline [Pamelor] 25 mg PO HS 04/01/21 04/06/21 Rimegepant Sulfate [Nurtec Odt] 75 mg PO DAILY PRN 04/01/21 04/06/21 Topiramate [Topamax] 25 mg PO HS 04/01/21 04/06/21 Umeclidinium Brm/Vilanterol Tr 1 puff INHALATION DAILY 04/01/21 04/06/21 [Anoro Ellipta 62.5-25 Mcg INH] Previous Rx's Medication Instructions Recorded Oseltamivir [Tamiflu] 75 mg PO Q12HR #10 cap 07/15/23 Allergies Allergy/AdvReac Type Severity Reaction Status Date / Time aspirin Allergy Anaphylaxis Verified 04/06/21 08:55 ibuprofen Allergy Anaphylaxis Verified 04/06/21 08:55 Latex, Natural Rubber Allergy Rash/Hives Verified 04/06/21 08:55 Penicillins Allergy Anaphylaxis Verified 04/06/21 08:55 Review of Systems ROS Statement: Those systems with pertinent positive or pertinent negative responses have been documented in the HPI. ROS Other: All systems not noted in ROS Statement are negative. Past Medical History Past Medical History: Asthma, COPD, GERD/Reflux, Hyperlipidemia Additional Past Medical History / Comment(s): esophageal spasms, migraines History of Any Multi-Drug Resistant Organisms: None Reported Past Surgical History: Section, Uterine Ablation Additional Past Surgical History / Comment(s): D&C , C-SEC X 3, EGD, Past Anesthesia/Blood Transfusion Reactions: No Reported Reaction Past Psychological History: Anxiety, Depression Smoking Status: Former smoker - Past Family History Mother History Unknown: Yes Family Medical History: No Reported History Father History Unknown: Yes Family Medical History: No Reported History General Exam Limitations: no limitations General appearance: alert, in no apparent distress Head exam: Present: atraumatic, normocephalic, normal inspection Eye exam: Present: normal appearance, PERRL, EOMI. Absent: scleral icterus, conjunctival injection, periorbital swelling ENT exam: Present: normal exam, mucous membranes moist Neck exam: Present: normal inspection. Absent: tenderness, meningismus, lymphadenopathy Respiratory exam: Present: normal lung sounds bilaterally. Absent: respiratory distress, wheezes, rales, rhonchi, stridor Cardiovascular Exam: Present: normal rhythm, tachycardia, normal heart sounds. Absent: systolic murmur, diastolic murmur, rubs, gallop, clicks GI/Abdominal exam: Present: soft, normal bowel sounds. Absent: distended, tenderness, guarding, rebound, rigid Extremities exam: Present: normal inspection, full ROM, normal capillary refill. Absent: tenderness, pedal edema, joint swelling, calf tenderness Back exam: Present: normal inspection Neurological exam: Present: alert, oriented X3 Psychiatric exam: Present: normal affect, normal mood Skin exam: Present: warm, dry, intact, normal color. Absent: rash Course Vital Signs 07/15/23 07/15/23 07/15/23 15:31 17:42 18:37 Temperature 99.8 F H 98.7 F Pulse Rate 118 H 112 H 112 H Respiratory 20 18 18 Rate Blood Pressure 137/94 123/89 130/96 O2 Sat by Pulse 99 98 100 Oximetry Medical Decision Making - Medical Decision Making Was pt. sent in by a medical professional or institution (, PA, ART HISTORY INSTRUCTOR, urgent care, hospital, or senior living...) When possible be specific @ -No Did you speak to anyone other than the patient for history (EMS, parent, family, police, friend...)? What history was obtained from this source @ -No Did you review nursing and triage notes (agree or disagree)? Why? @ -I reviewed and agree with nursing and triage notes Were old charts reviewed (outside hosp., previous admission, EMS record, old EKG, old radiological studies, urgent care reports/EKG's, senior living records)? Report findings @ -No old charts were reviewed Differential Diagnosis (chest pain, altered mental status, abdominal pain women, abdominal pain men, vaginal bleeding, weakness, fever, dyspnea, syncope, headache, dizziness, GI bleed, back pain, seizure, CVA, palpatations, mental health, musculoskeletal)? @ -Differential Fever: Pneumonia, viral URI, endocarditis, myocarditis, pericarditis, otitis, sinusitis, peritonsillar Abscess, retropharyngeal Abscess, epiglottitis, peritonitis, appendicitis, Daphne cystitis, diverticulitis, hepatitis, colitis, UTI, PID, TOA, pyelonephritis, prostatitis, epididymitis, meningitis, encephalitis, pulmonary embolism, CVA, thyroid storm, pancreatitis, adrenal crisis, cavernous sinus thrombosis, this is not meant to be an all-inclusive list. EKG interpreted by me (3pts min.). @ -EKG at 1711 shows sinus tachycardia rate 114, IN 126, QRS 82, QTQTc 307 /375 X-rays interpreted by me (1pt min.). @ -Chest x-ray shows no acute infiltrate CT interpreted by me (1pt min.). @ -None done U/S interpreted by me (1pt. min.). @ -None done What testing was considered but not performed or refused? (CT, X-rays, U/S, labs)? Why? @ -None What meds were considered but not given or refused? Why? @ -None Did you discuss the management of the patient with other professionals (professionals i.e. , PA, ART HISTORY INSTRUCTOR, lab, RT, psych nurse, social media project manager, hand brim ironer, teacher, neighborhood conservation officer, behavioral health case manager)? Give summary @ -No Was smoking cessation discussed for >3mins.? @ -No Was critical care preformed (if so, how long)? @ -No Were there social determinants of health that impacted care today? How? (Homelessness, low income, unemployed, alcoholism, drug addiction, transportation, low edu. Level, literacy, decrease access to med. care, senior living, rehab)? @ -No Was there de-escalation of care discussed even if they declined (Discuss DNR or withdrawal of care, Hospice)? DNR status @ -No What co-morbidities impacted this encounter? (DM, HTN, Smoking, COPD, CAD, Cancer, CVA, ARF, Chemo, Hep., AIDS, mental health diagnosis, sleep apnea, morbi d obesity)? @ -None Was patient admitted / discharged? Hospital course, mention meds given and route, prescriptions, significant lab abnormalities, going to OR and other pertinent info. @ -Discharged. Patient presented to the emergency department for chief complaint of cough, congestion, muscle aches 2 days. Chest x-ray shows no acute infiltrates, COPD changes Laboratory studies obtained which were essentially unremarkable; UA negative for nitrite, negative leukocyte esterase; strep negative, Covid, RSV negative. Patient positive for influenza A. Discussed the findings with patient and patient will likely be started on Tamiflu. Prescription sent to patient's pharmacy. Patient given a dose of Tamiflu in the emergency Department. Patient also sees a liter of normal saline in the emergency department. Patient stable at discharge. Case discussed with Dr. Barron Undiagnosed new problem with uncertain prognosis? @ -No Drug Therapy requiring intensive monitoring for toxicity (Heparin, Nitro, Insulin, Cardizem)? @ -No Were any procedures done? @ -No Diagnosis/symptom? @ -influenza a Acute, or Chronic, or Acute on Chronic? @ -acute Uncomplicated (without systemic symptoms) or Complicated (systemic symptoms)? @ -uncomplicated Side effects of treatment? @ -No Exacerbation, Progression, or Severe Exacerbation? @ -No Poses a threat to life or bodily function? How? (Chest pain, [place], [place], pneumonia, PE, COPD, DKA, ARF, appy, cholecystitis, CVA, Diverticulitis, Homicidal, Suicidal, threat to staff... and all critical care pts) @ -No - Lab Data Result diagrams: 07/15/23 16:52 07/15/23 16:52 Lab Results 07/15/23 07/15/23 07/15/23 Range/Units 16:52 16:52 16:52 WBC 11.3 H (3.8-10.6) k/uL RBC 4.96 (3.80-5.40) m/uL Hgb 15.2 (11.4-16.0) gm/dL Hct 46.0 (34.0-46.0) % MCV 92.8 (80.0-100.0) fL MCH 30.6 (25.0-35.0) pg MCHC 33.0 (31.0-37.0) g/dL RDW 12.9 (11.5-15.5) % Plt Count 299 (150-450) k/uL MPV 7.0 Neutrophils % 82 % Lymphocytes % 12 % Monocytes % 3 % Eosinophils % 2 % Basophils % 1 % Neutrophils # 9.3 H (1.3-7.7) k/uL Lymphocytes # 1.3 (1.0-4.8) k/uL Monocytes # 0.3 (0-1.0) k/uL Eosinophils # 0.2 (0-0.7) k/uL Basophils # 0.1 (0-0.2) k/uL Sodium (137-145) mmol/L Potassium (3.5-5.1) mmol/L Chloride (98-107) mmol/L Carbon Dioxide (22-30) mmol/L Anion Gap mmol/L BUN (7-17) mg/dL Creatinine (0.52-1.04) mg/dL Est GFR (CKD-EPI)AfAm (>60 ml/min/1.73 sqM) Est GFR (CKD-EPI)NonAf (>60 ml/min/1.73 sqM) Glucose (74-99) mg/dL Plasma Lactic Acid Chidi (0.7-2.0) mmol/L Calcium (8.4-10.2) mg/dL Total Bilirubin (0.2-1.3) mg/dL AST (14-36) U/L ALT (4-34) U/L Alkaline Phosphatase (38-126) U/L Total Protein (6.3-8.2) g/dL Albumin (3.5-5.0) g/dL Urine Color Yellow Urine Appearance Clear (Clear) Urine pH 6.0 (5.0-8.0) Ur Specific [place] 1.013 (1.001-1.035) Urine Protein Negative (Negative) Urine Glucose (UA) Negative (Negative) Urine Ketones Negative (Negative) Urine Blood Negative (Negative) Urine Nitrite Negative (Negative) Urine Bilirubin Negative (Negative) Urine Urobilinogen <2.0 (<2.0) mg/dL Ur Leukocyte Esterase Negative (Negative) Urine HCG, Qual Not Detected (Not Detectd) Influenza Type A (PCR) (Not Detectd) Influenza Type B (PCR) (Not Detectd) RSV (PCR) (Not Detectd) SARS-CoV-2 (PCR) (Not Detectd) Group A Strep (PCR) (Not Detectd) 07/15/23 07/15/23 07/15/23 Range/Units 16:52 16:52 16:52 WBC (3.8-10.6) k/uL RBC (3.80-5.40) m/uL Hgb (11.4-16.0) gm/dL Hct (34.0-46.0) % MCV (80.0-100.0) fL MCH (25.0-35.0) pg MCHC (31.0-37.0) g/dL RDW (11.5-15.5) % Plt Count (150-450) k/uL MPV Neutrophils % % Lymphocytes % % Monocytes % % Eosinophils % % Basophils % % Neutrophils # (1.3-7.7) k/uL Lymphocytes # (1.0-4.8) k/uL Monocytes # (0-1.0) k/uL Eosinophils # (0-0.7) k/uL Basophils # (0-0.2) k/uL Sodium 139 (137-145) mmol/L Potassium 4.1 (3.5-5.1) mmol/L Chloride 100 (98-107) mmol/L Carbon Dioxide 26 (22-30) mmol/L Anion Gap 13 mmol/L BUN 12 (7-17) mg/dL Creatinine 0.60 (0.52-1.04) mg/dL Est GFR (CKD-EPI)AfAm >90 (>60 ml/min/1.73 sqM) Est GFR (CKD-EPI)NonAf >90 (>60 ml/min/1.73 sqM) Glucose 111 H (74-99) mg/dL Plasma Lactic Acid Chidi 1.1 (0.7-2.0) mmol/L Calcium 9.6 (8.4-10.2) mg/dL Total Bilirubin 0.6 (0.2-1.3) mg/dL AST 23 (14-36) U/L ALT 20 (4-34) U/L Alkaline Phosphatase 119 (38-126) U/L Total Protein 8.1 (6.3-8.2) g/dL Albumin 4.5 (3.5-5.0) g/dL Urine Color Urine Appearance (Clear) Urine pH (5.0-8.0) Ur Specific [place] (1.001-1.035) Urine Protein (Negative) Urine Glucose (UA) (Negative) Urine Ketones (Negative) Urine Blood (Negative) Urine Nitrite (Negative) Urine Bilirubin (Negative) Urine Urobilinogen (<2.0) mg/dL Ur Leukocyte Esterase (Negative) Urine HCG, Qual (Not Detectd) Influenza Type A (PCR) (Not Detectd) Influenza Type B (PCR) (Not Detectd) RSV (PCR) (Not Detectd) SARS-CoV-2 (PCR) (Not Detectd) Group A Strep (PCR) NOT DETECTED (Not Detectd) 07/15/23 Range/Units 16:52 WBC (3.8-10.6) k/uL RBC (3.80-5.40) m/uL Hgb (11.4-16.0) gm/dL Hct (34.0-46.0) % MCV (80.0-100.0) fL MCH (25.0-35.0) pg MCHC (31.0-37.0) g/dL RDW (11.5-15.5) % Plt Count (150-450) k/uL MPV Neutrophils % % Lymphocytes % % Monocytes % % Eosinophils % % Basophils % % Neutrophils # (1.3-7.7) k/uL Lymphocytes # (1.0-4.8) k/uL Monocytes # (0-1.0) k/uL Eosinophils # (0-0.7) k/uL Basophils # (0-0.2) k/uL Sodium (137-145) mmol/L Potassium (3.5-5.1) mmol/L Chloride (98-107) mmol/L Carbon Dioxide (22-30) mmol/L Anion Gap mmol/L BUN (7-17) mg/dL Creatinine (0.52-1.04) mg/dL Est GFR (CKD-EPI)AfAm (>60 ml/min/1.73 sqM) Est GFR (CKD-EPI)NonAf (>60 ml/min/1.73 sqM) Glucose (74-99) mg/dL Plasma Lactic Acid Chidi (0.7-2.0) mmol/L Calcium (8.4-10.2) mg/dL Total Bilirubin (0.2-1.3) mg/dL AST (14-36) U/L ALT (4-34) U/L Alkaline Phosphatase (38-126) U/L Total Protein (6.3-8.2) g/dL Albumin (3.5-5.0) g/dL Urine Color Urine Appearance (Clear) Urine pH (5.0-8.0) Ur Specific [place] (1.001-1.035) Urine Protein (Negative) Urine Glucose (UA) (Negative) Urine Ketones (Negative) Urine Blood (Negative) Urine Nitrite (Negative) Urine Bilirubin (Negative) Urine Urobilinogen (<2.0) mg/dL Ur Leukocyte Esterase (Negative) Urine HCG, Qual (Not Detectd) Influenza Type A (PCR) Detected A (Not Detectd) Influenza Type B (PCR) Not Detected (Not Detectd) RSV (PCR) Not Detected (Not Detectd) SARS-CoV-2 (PCR) Not Detected (Not Detectd) Group A Strep (PCR) (Not Detectd) Disposition Clinical Impression: Influenza A Disposition: HOME SELF-CARE Condition: Stable Instructions (If sedation given, give patient instructions): Influenza (ED) Additional Instructions: Please follow up with your primary care provider. Return to the emergency department for new or worsening symptoms. Prescriptions: Oseltamivir [Tamiflu] 75 mg PO Q12HR #10 cap Is patient prescribed a controlled substance at d/c from ED?: No Referrals: None,Stated [Primary Care Provider] - 1-2 days
--- NOTE | 2023-07-15 16:39 | XR ---
EXAMINATION TYPE: XR chest 2V DATE OF EXAM: 07/15/2023 4:34 PM CLINICAL INDICATION:Female, 47 years old with history of cough,fever; PHH COMPARISON: Chest radiographs from 08/27/2020 TECHNIQUE: XR chest 2V Frontal and lateral views of the chest. FINDINGS: Lungs/Pleura: There is no evidence of pleural effusion, focal consolidation, or pneumothorax. Pulmonary vascularity: Unremarkable. Heart/mediastinum: Cardiomediastinal silhouette is unremarkable. Musculoskeletal: No acute osseous pathology. IMPRESSION: No acute cardiopulmonary disease/process.
[2023-07-15 17:10] LABS: Basophils # (A) 0.1 k/uL (0-0.2); Basophils % (A) 1 %; Eosinophils # (A) 0.2 k/uL (0-0.7); Eosinophils % (A) 2 %; HGB 15.2 gm/dL (11.4-16.0); Lymphocytes # (A) 1.3 k/uL (1.0-4.8); Lymphocytes % (A) 12 %; MCH 30.6 pg (25.0-35.0); MCV 92.8 fL (80.0-100.0); Monocytes # (A) 0.3 k/uL (0-1.0); Monocytes % (A) 3 %; Neutrophils # (A) 9.3 k/uL (1.3-7.7); Neutrophils % (A) 82 %; Platelet Count 299 k/uL (150-450); RBC 4.96 m/uL (3.80-5.40); RDW 12.9 % (11.5-15.5); WBC 11.3 k/uL (3.8-10.6)
[2023-07-15 17:19] LABS: Appearance,Urine Clear (Clear); Bilirubin,Urine Negative (Negative); Blood,Urine Negative (Negative); Color,Urine Yellow; Glucose,Urine (UA) Negative (Negative); Ketones,Urine Negative (Negative); Leukocyte Esterase,Urine Negative (Negative); Nitrite,Urine Negative (Negative); Protein,Urine Negative (Negative); Specific Gravity,Urine 1.013 (1.001-1.035); Urobilinogen,Urine <2.0 mg/dL (<2.0)
[2023-07-15 17:27] LABS: ALT 20 U/L (4-34); AST 23 U/L (14-36); African American GFR (CKD) >90 (>60 ml/min/1.73 sqM); Albumin 4.5 g/dL (3.5-5.0); Alkaline Phosphatase 119 U/L (38-126); Anion Gap 13 mmol/L; Blood Urea Nitrogen 12 mg/dL (7-17); Calcium 9.6 mg/dL (8.4-10.2); Carbon Dioxide 26 mmol/L (22-30); Chloride 100 mmol/L (98-107); Glucose 111 mg/dL (74-99); Non-African American GFR(CKD) >90 (>60 ml/min/1.73 sqM); Potassium 4.1 mmol/L (3.5-5.1); Sodium 139 mmol/L (137-145); Total Bilirubin 0.6 mg/dL (0.2-1.3); Total Protein 8.1 g/dL (6.3-8.2)
[2023-07-15 18:00] VITALS: PULSE 112; RESP 18; TEMP 98.7
[2023-07-15] MEDS ORDERED: OSELTAMIVIR 75 MG CAP PO STA (18:25)
[2023-07-15 18:43] VITALS: BP 130/96
== END 2023-07-15 18:38 | disposition home or self-care (01) ==
LOC: EC 15:21
DX: J10.1 Influenza due to other identified influenza virus with other respiratory manifestations (principal); R00.0 Tachycardia, unspecified; J44.89 Other specified chronic obstructive pulmonary disease; E78.5 Hyperlipidemia, unspecified; K21.9 Gastro-esophageal reflux disease without esophagitis; F41.9 Anxiety disorder, unspecified; F32.A Depression, unspecified; Z87.891 Personal history of nicotine dependence; Z79.899 Other long term (current) drug therapy; Z20.822 Contact with and (suspected) exposure to COVID-19; Z88.0 Allergy status to penicillin; Z88.6 Allergy status to analgesic agent; Z91.040 Latex allergy status
CPT/HCPCS: 36415; 71046; 80053; 81003; 81025; 83605; 85025; 87636; 87651; 93005; 99284

== ENCOUNTER → 2023-11-23 | Outpatient (CLI) | payer OTHER ==
--- NOTE | 2023-11-23 15:29 | XR ---
EXAMINATION TYPE: XR lumbar spine with bend/flex, 7 views DATE OF EXAM: 11/23/2023 Comparison: 04/16/2019 Clinical History: 48-year-old female M53.3 SACROCOCCYGEAL DISORDERS, NOT ELSEWHERE M54. Findings: 5 lumbar type vertebral bodies. No pars interarticularis defect. Facet arthropathy lower lumbar spine . There is a L4 limbus vertebrae. Mild multilevel degenerative disc disease. Small endplate Schmorl's nodes scattered within the upper and mid lumbar spine. Vertebral body heights are preserved and alig nment is maintained. No dynamic subluxation with flexion or extension. Degenerative disc disease and facet arthropathy show slight progression from 2019. Impression: Mild multilevel degenerative disc disease. Facet arthropathy mid to lower lumbar spine. Changes progr essed from 2019. No spondylolisthesis or dynamic subluxation.
== END | disposition home or self-care (01) ==
LOC: RADXRMAIN 14:39
PROVIDERS: ATTEND Anesthesiology
DX: M51.16 Intervertebral disc disorders with radiculopathy, lumbar region (principal); M47.26 Other spondylosis with radiculopathy, lumbar region; M53.3 Sacrococcygeal disorders, not elsewhere classified; M46.1 Sacroiliitis, not elsewhere classified; G89.4 Chronic pain syndrome; S32.2XXS Fracture of coccyx, sequela; X58.XXXS Exposure to other specified factors, sequela
CPT/HCPCS: 72114

== ENCOUNTER → 2023-12-15 | Outpatient (CLI) | payer OTHER ==
--- NOTE | 2023-12-15 10:49 | MR ---
EXAMINATION TYPE: MR lumbar spine wo con DATE OF EXAM: 12/15/2023 COMPARISON: None HISTORY: Low back pain into pelvis TECHNIQUE: Multiplanar, multisequence images of the lumbar spine were acquired without IV contrast. Findings: The lumbar vertebral segments are normal in height and alignment and there is no fracture or subluxat ion. There is mild disc space narrowing and circumferential disc bulge at the L1-2, L2-3 and L3-4 levels. There are no lumbar disc protrusions or herniations. The conus medullaris cauda equina appear normal and there is no lumbar spinal stenosis. There is no neural foraminal stenosis. There is mild facet arthropathy at the L3-4 and L4-5 levels. The paraspinal soft tissues are unremarkable. IMPRESSION: 1. Mild degenerative disc disease at the L1-2, L2-3 and L3-4 levels. 2. No lumbar disc herniation or spinal stenosis. 3. No neural foraminal stenosis. 4. Mild facet arthropathy at the L3-4 and L4-5 levels.
== END | disposition home or self-care (01) ==
LOC: RADMRIMAIN 10:09
PROVIDERS: ATTEND Anesthesiology
DX: M51.36 Other intervertebral disc degeneration, lumbar region (principal); M47.816 Spondylosis without myelopathy or radiculopathy, lumbar region
CPT/HCPCS: 72148

== ENCOUNTER → 2025-01-23 | Outpatient (CLI) | payer OTHER ==
--- NOTE | 2025-01-24 08:16 | XR ---
Sacrum and coccyx. HISTORY: Pain COMPARISON: 04/16/2019. TECHNIQUE: 3 views of sacrum and coccyx were obtained. FINDINGS: There is no fracture or focal intraosseous abnormality of the sacrum or coccyx. The SI joints are nor mal without diastasis or sclerosis. IMPRESSION: No significant abnormality seen. [facility], Workstation: [facility], 01/24/2025 8:14 AM
== END | disposition home or self-care (01) ==
LOC: RADXRMAIN 16:26
PROVIDERS: ATTEND Anesthesiology
DX: M53.3 Sacrococcygeal disorders, not elsewhere classified (principal); G56.40 Causalgia of unspecified upper limb
CPT/HCPCS: 72220